=== PATIENT | female | born 1975 | race Caucasian/White ===

== ENCOUNTER 2020-10-18 15:11 | Outpatient (REF) | payer OTHER, SELFPAY ==
--- NOTE | ~2020-10-18 | MM_ITS ---
EXAMINATION: MM SCREENING DIGITAL BREAST TOMOSYNTHESIS, BILATERAL CLINICAL INFORMATION: Screening. Asymptomatic. History left ultrasound guided biopsy performed in [place] 12/02/2016 (benign fibroadenoma). No known family history breast cancer. The lifetime risk of breast cancer based on the Tyrer-Cuzick Model is 9%. COMPARISON: Mammography: 09/08/2018; outside ultrasound left breast and post biopsy left mammogram 12/02/2016 ([facility]; [place]). TECHNIQUE: Digital breast tomosynthesis is performed in both the craniocaudal and mediolateral oblique views along with computer-aided detection (CAD). Synthesized 2D images are generated from the tomosynthesis. FINDINGS: The breasts are heterogeneously dense, which may obscure small masses (ACR BI-RADS breast composition Category c). Breast tissue composition borders on extremely dense. Parenchymal pattern is similar to prior exam. There is no interval mass or architectural abnormality or abnormal calcifications. Biopsy clip marker again noted posterior 9:00 left breast. The axilla and skin contours are unremarkable. MM/MM tomosynthesis screening BI IMPRESSION: No mammographic evidence of malignancy. ASSESSMENT: BI-RADS 1: Negative RECOMMENDATION: Routine annual mammography screening. This patient's information was entered into a reminder system with a target due date for their next mammogram.
== END 2020-10-18 15:12 | disposition home or self-care (01) ==
LOC: HO.MAMMO 15:11
PROVIDERS: PCP Internal Medicine; Visit Provider Internal Medicine
DX: Z12.31 Encounter for screening mammogram for malignant neoplasm of breast (principal)
CPT/HCPCS: 77063; 77067

== ENCOUNTER 2020-11-08 10:07 | Outpatient (REF) | payer OTHER, SELFPAY ==
[2020-11-08 12:33] LABS: HCG Quantitative < 2 mIU/mL; TSH reflex Free T4 1.32 uIU/mL (0.32-4.0)
[2020-11-09 04:42] LABS: Follicle Stimulating Hormone 20.4 mIU/mL
[2020-11-09 08:45] LABS: BV Int Neg Control Negative (Negative); BV Int Pos Control Positive (Positive)
[2020-11-09 08:47] LABS: CT PCR NOT DETECTED (Not Detect.); NG PCR NOT DETECTED (Not Detect.)
== END 2020-11-08 10:08 | disposition home or self-care (01) ==
LOC: HO.LAB 10:07
PROVIDERS: PCP Internal Medicine; Visit Provider Obstetrics & Gynecology
DX: Z01.419 Encounter for gynecological examination (general) (routine) without abnormal findings (principal); Z11.3 Encounter for screening for infections with a predominantly sexual mode of transmission; N91.2 Amenorrhea, unspecified
CPT/HCPCS: 36415; 83001; 84146; 84443; 84702; 87480; 87491; 87510; 87591; 87660

== ENCOUNTER 2020-11-16 19:14 | Emergency (ER) | payer OTHER, SELFPAY ==
[2020-11-16 20:29] VITALS: BP 168/84; PULSE 98; RESP 16; TEMP 36.6; O2SAT 98; BMI 26.9
[2020-11-16 21:38] LABS: MANUAL DIFF FLAG NO
[2020-11-16 21:44] LABS: Basophils Percent Auto 0.4 % (0-2); Eosinophils Absolute Auto 0.1 X10*3/uL (0.0-0.4); Eosinophils Percent Auto 0.7 % (0-4); Hematocrit 40.5 % (37-47); Imm Gran Abs Auto 0.02 X10*3/uL (0.00-0.03); Imm Gran Pct Auto 0.3 % (0.0-0.4); Lymphocytes Absolute Auto 1.9 X10*3/uL (1.2-4.9); Lymphocytes Percent Auto 26.6 % (20-40); Mean Corpuscular HGB Conc 32.1 g/dl (31.0-35.0); Mean Corpuscular Hemoglobin 28.9 pg (27.0-33.0); Mean Platelet Volume 10.4 fL (9.4-12.3); Monocytes Absolute Auto 0.6 X10*3/uL (0.1-1.2); Monocytes Percent Auto 8.8 % (2-11); Neutrophils Absolute Auto 4.6 X10*3/uL (2.0-8.3); Neutrophils Percent Auto 63.2 % (45-73); Platelet Count 309 X10*3/uL (160-400); Red Cell Distribution Width 13.2 % (11.0-16.0); White Blood Count 7.2 X10*3/uL (4.8-10.8)
[2020-11-16 22:19] LABS: Anion Gap 12 (12-20); Blood Urea Nitrogen 8 mg/dL (9-16); Calcium 9.5 mg/dL (8.4-10.2); Carbon Dioxide 26 mmol/L (22-29); Chloride 106 mmol/L (96-108); Creatinine Clr Calc Pharmacy 94.9; Estimated Glomerular Filt Rate > 60; Glucose Random 96 mg/dL (60-115); Potassium 4.2 mmol/L (3.3-5.1); Sodium 140 mmol/L (135-145)
[2020-11-16 22:30] VITALS: BP 160/76; PULSE 50; RESP 16; O2SAT 100
--- NOTE | 2020-11-16 22:35 | PC.NURSE ---
PT UPRIGHT IN BED WATCHING TV, PT C/O L SIDED HEADACHE RADIATING FROM L POSTERIOR NECK SINCE THIS AM, ALSO CONCERNED FOR ELEVATED BP READINGS AT HOME. PT'S NEUROS GROSSLY INTACT, PT IN NAD, REPORTS HX OF MIGRAINES IN PAST. PT AWAITING PRIMARY PROVIDER AVERY.
--- NOTE | 2020-11-16 23:52 | ECG_ITS ---
Test Reason : HEADACHE Blood Pressure : / mmHG Vent. Rate : 057 BPM Atrial Rate : 057 BPM P-R Int : 156 ms QRS Dur : 084 ms QT Int : 422 ms P-R-T Axes : 018 003 050 degrees QTc Int : 410 ms Sinus bradycardia Otherwise normal ECG No previous ECGs available Referred By: Eliz García Electronically Signed By:Joni Calderon
[2020-11-17] VITALS: BP 151/82; PULSE 59; RESP 16; TEMP 36.7; O2SAT 98
[2020-11-17 00:30] LABS: Glucose Urine UA NEG (NEG); Leukocyte Esterase Urine NEG (NEG); Nitrite Urine NEG (NEG); Urine Blood NEG (NEG); Urine Ketones NEG (NEG); Urine Protein NEG (NEG-TRACE)
[2020-11-17 00:40] LABS: Appearance Urine CLEAR; Color Urine STRAW
--- NOTE | 2020-11-17 01:32 | ED.GENADULT ---
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 She states that she did take her meloxicam for her known ?muscle spasms? and denies any fever, chills, nausea, diaphoresis, speech or hearing changes with the headache. She says that she checked her blood pressure and noted that it was ?high?. In addition, patient has taken her blood pressure several other times and recorded it on a piece of paper which she shows to be in the 150s to 160s over 90s to 100. Otherwise she denies any chest pain, shortness of breath. Related Data Home Medications Medication Instructions Recorded Confirmed meloxicam 1 tab PO DAILY 10/30/20 10/30/20 meloxicam 1 tab PO DAILY PRN 10/30/20 10/30/20 Previous Rx's Medication Instructions Recorded ferrous sulfate [iron] 325 mg PO BID #60 tab 10/31/20 Allergies Allergy/AdvReac Type Severity Reaction Status Date / Time penicillin G Allergy Unknown Rash/itchin Verified 11/08/20 10:12 g Penicillins [PENICILLINS] Allergy Unknown RASH,ITCHY Verified 11/08/20 10:12 Review of Systems Review of Systems: Pertinent positives and negatives as stated in HPI 10 point review of systems is otherwise negative. PMFSH Past Medical History Source: nursing notes reviewed Medical History Fibromyalgia Surgical History H/O dilation and curettage H/O left breast biopsy Family History Family History Maternal Grandmother Tracheal cancer Mother Hypertension Father Hypertension Social History Social History Alcohol intake: never Advance Directives: No Advance Directives Information Provided: Yes Patient : No Physical Exam Vital Signs: Vital Signs: Last Vital Signs Temp 98.0 F 11/17/20 00:00 Pulse 59 11/17/20 00:00 Resp 16 11/17/20 00:00 BP 151/82 H 11/17/20 00:00 Pulse Ox 98 11/17/20 00:00 Body Mass Index 26.9 VITAL SIGNS: Reviewed. GENERAL: Well developed, well nourished, in no acute distress. HEAD: Normocephalic/atraumatic EYES: PERRLA, EOMI OROPHARYNX: no oral lesions noted, posterior pharynx clear NECK: Supple, no adenopathy LUNGS: Normal breath sounds. No adventitious sounds or accessory muscle use. SpO2<98> CARDIOVASCULAR: Regular rate and rhythm without noted murmurs ABDOMEN: Soft, non-tender, non-distended with bowel sounds. NEUROLOGIC: Alert and oriented x 4. Strength and sensation to light touch were grossly intact x 4, no pronator drift, no facial asymmetry, cranial nerves 2-12 are grossly intact Course Course Course Narrative: This is a 45-year-old female with history and clinical presentation consistent with tension-type headache and review of all investigations for blood pressure is negative for acute findings. All results were discussed with the patient at bedside she was counseled regarding combination of salt intake as well as medications such as meloxicam which can contribute to elevated blood pressures. Medical Decision Making Lab Data Result diagrams: 11/16/20 21:27 11/16/20 21:27 Labs: Lab Results 11/16/20 11/16/20 11/17/20 Range/Units 21:27 21:27 00:14 WBC 7.2 (4.8-10.8) X10*3/uL RBC 4.50 (4.20-5.50) X10*6/uL Hgb 13.0 (12.0-16.0) g/dl Hct 40.5 (37-47) % MCV 90.0 (80-98) fL MCH 28.9 (27.0-33.0) pg MCHC 32.1 (31.0-35.0) g/dl RDW 13.2 (11.0-16.0) % Plt Count 309 (160-400) X10*3/uL MPV 10.4 (9.4-12.3) fL Immature Gran % (Auto) 0.3 (0.0-0.4) % Neut % (Auto) 63.2 (45-73) % Lymph % (Auto) 26.6 (20-40) % [place] % (Auto) 8.8 (2-11) % Eos % (Auto) 0.7 (0-4) % Baso % (Auto) 0.4 (0-2) % Lymph # (Auto) 1.9 (1.2-4.9) X10*3/uL [place] # (Auto) 0.6 (0.1-1.2) X10*3/uL Eos # (Auto) 0.1 (0.0-0.4) X10*3/uL Baso # (Auto) 0.0 (0.0-0.2) X10*3/uL Abs Immat Gran (auto) 0.02 (0.00-0.03) X10*3/uL Absolute Neuts (auto) 4.6 (2.0-8.3) X10*3/uL Absolute Nucleated RBC 0.000 (0.0-0.012) X10*3/uL Nucleated RBC % (auto) 0.0 (0.0-0.2) /100WBC Sodium 140 (135-145) mmol/L Potassium 4.2 (3.3-5.1) mmol/L Chloride 106 (96-108) mmol/L Carbon Dioxide 26 (22-29) mmol/L Anion Gap 12 (12-20) BUN 8 L (9-16) mg/dL Creatinine 0.74 (0.5-1.4) mg/dL Estim Creat Clear Calc 94.9 Estimated GFR > 60 Random Glucose 96 (60-115) mg/dL Calcium 9.5 D (8.4-10.2) mg/dL Urine Color STRAW Urine Appearance CLEAR Urine pH 6.0 (5.0-8.0) Ur Specific [place] 1.010 (1.005-1.025) Urine Protein NEG (NEG-TRACE) MG/DL Urine Glucose (UA) NEG (NEG) MG/DL Urine Ketones NEG (NEG) MG/DL Urine Blood NEG (NEG) Urine Nitrite NEG (NEG) Ur Leukocyte Esterase NEG (NEG) ECG Data Attestation: I personally reviewed and interpreted this ECG as follows: Prior ECG tracings: not available for review Interpretation: Sinus bradycardia, HR -57, no evidence of acute ischemia, VT/QRS/QTC are within normal limits Discharge Plan Discharge Clinical Impression: Hypertension Patient Disposition: Home, Self-Care Instructions: Hypertension (ED), DASH Eating Plan (ED), Heart Healthy Diet (ED), Low-Sodium Diet (ED) Additional Instructions: 1. Miya un seguimiento con griggs proveedor de atenci?n primaria llamando al consultorio el lunes por la ma?patricia para programar julio juanita de reevaluaci?n. Regrese a la dany de emergencias por cualquier empeoramiento dereck de los s?ntomas. Prescriptions: No Action meloxicam 15 mg tablet 1 tab PO DAILY PRN (Reason: pain) RF: 0 meloxicam 7.5 mg tablet 1 tab PO DAILY RF: 0 ferrous sulfate [iron] 325 mg (65 mg iron) Tablet 325 mg PO BID Qty: 60 RF: 3 Referrals: Patricia Sidhu MD [Primary Care Provider] - 2 days ( please re-evaluate patient for mild evidence of hypertension, lab work is negative) Print Language: Tuvaluan
== END 2020-11-17 02:06 | disposition home or self-care (01) ==
PROVIDERS: Emergency Provider Student in an Organized Health Care Education/Training Program; PCP Internal Medicine
DX: I10 Essential (primary) hypertension (principal); R51.9 Headache, unspecified
CPT/HCPCS: 36415; 80048; 81003; 85025; 93005; 99283; 99284

== ENCOUNTER 2020-11-20 14:21 | Outpatient (REF) | payer OTHER, SELFPAY ==
--- NOTE | ~2020-11-20 | US_ITS ---
EXAMINATION: PELVIC ULTRASOUND CLINICAL INFORMATION: Amenorrhea COMPARISON: Previous exam most recent September 2018 TECHNIQUE: Transabdominal and transvaginal pelvic ultrasound was performed. Transvaginal exam was performed for better visualization of the uterus and ovaries. FINDINGS: The uterus is anteverted and measures 11 x 4.4 x 6 cm in dimension. There are 3 uterine lesions suggestive of fibroids measuring 2.3 x 2.3 x 2.2 cm in the left body of the uterus, 7 x 6 x 7 mm in the posterior upper body of the uterus near the endometrium and 9 mm in the anterior upper body of the uterus near the endometrium. The endometrium is normal appearing. Endometrial thickness measures 0.4 cm. The ovaries are normal-appearing. The right ovary measures 2.9 x 1.8 x 2 cm. The left ovary measures 2.4 x 1.6 x 1.5 cm. There is no fluid in the pelvis. There are prominent right adnexal vessels questionable for pelvic congestion. US/US pelvic and transvaginal IMPRESSION: Small uterine fibroids. Prominent vessels in the right adnexa questionable for pelvic congestion.
== END 2020-11-20 14:22 | disposition home or self-care (01) ==
LOC: HO.US 14:21
PROVIDERS: Visit Provider Obstetrics & Gynecology
DX: R10.9 Unspecified abdominal pain (principal); N91.2 Amenorrhea, unspecified; D50.9 Iron deficiency anemia, unspecified; Z80.0 Family history of malignant neoplasm of digestive organs
CPT/HCPCS: 76830; 76856

== ENCOUNTER → 2020-12-04 10:55 | Outpatient (BNVA) | payer OTHER, SELFPAY | PROVIDERS: Visit Provider Obstetrics & Gynecology ==

== ENCOUNTER 2020-12-20 07:18 | Day surgery (SDC) | payer OTHER, SELFPAY ==
[2020-12-13 10:09] VITALS: BMI 26.9
--- NOTE | 2020-12-19 09:25 | HO.ANESPROP2 ---
Documented by User: Naa Nancy 12/19/20 09:28 HPI - Anesthesia Eval Consult details Narrative: 45yo F for Upper Endoscopy and Colonoscopy Started on HCTZ by PCP 12/18/20 [facility] Active Problems Active Problems: All Active Problems (Updated 12/18/20 @ 16:01 by Lucas Acosta PA-C) LUQ abdominal pain (Acute) Iron deficiency anemia (Chronic) Family history of colon cancer (Acute) HTN (hypertension) (Acute) Abdominal pain (Acute) Past Medical History Medical History Abdominal pain Fibromyalgia HTN (hypertension) Hx of migraine headaches Iron deficiency anemia Family History Family History Maternal Grandmother Tracheal cancer Mother Hypertension Father Hypertension Colon cancer Surgical History Surgical History H/O dilation and curettage H/O left breast biopsy Social History Social History Household Members: Spouse and Children Household Members Other:: 2 kids Housing: House Alcohol intake: never Patient Tobacco Use Status: Never used Tobacco e-Cigarette/Vaping Use: Never Used Second Hand Smoke Exposure: No Use of substances other than those prescribed or required for medical reasons: No Have you been hit, kicked, punched, or otherwise hurt by someone within the past year? 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 Rate : 057 BPM Atrial Rate : 057 BPM P-R Int : 156 ms QRS Dur : 084 ms QT Int : 422 ms P-R-T Axes : 018 003 050 degrees QTc Int : 410 ms Sinus bradycardia Otherwise normal ECG No previous ECGs available Assessment and Plan Assessment Anesthesia Assessment: Chart Reviewed Documented by User: Eliz Shabazz 12/20/20 08:31 PMFSH Past Medical History Medical History Abdominal pain Fibromyalgia HTN (hypertension) Hx of migraine headaches Iron deficiency anemia Family History Family History Maternal Grandmother Tracheal cancer Mother Hypertension Father Hypertension Colon cancer Surgical History Surgical History H/O dilation and curettage H/O left breast biopsy Social History Social History Household Members: Spouse and Children Household Members Other:: 2 kids Housing: House Alcohol intake: never Patient Tobacco Use Status: Never used Tobacco e-Cigarette/Vaping Use: Never Used Second Hand Smoke Exposure: No Use of substances other than those prescribed or required for medical reasons: No Have you been hit, kicked, punched, or otherwise hurt by someone within the past year? 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 Allergies Allergy/AdvReac Type Severity Reaction Status Date / Time Penicillins [PENICILLINS] Allergy Intermediate RASH,ITCHY Verified 12/18/20 15:41 Exam Airway Mallampati Class: II TM Dist: >3cm Neck ROM: Full Loose/Missing/Broken Teeth: No Heart: RRR Lungs: CTA Assessment and Plan Assessment Anesthesia Assessment: Anesthesia Plan Discussed and Chart Reviewed Final Anesthetic Review NPO: Yes ASA Class: II Final Preanesthetic Review: Meds/Allgs Chart Reviewed, Consent Obtained/Reviewed and Anes Risks/Benef Reviewed Patient Risk: Low Procedure Risk: Intermediate Anesthetic Plan Anesthetic Plan: MAC: Disposition: Standard PACU
--- NOTE | 2020-12-20 07:22 | MHC.SHP ---
Pre-Procedural Eval Section A Date of Service: 12/20/20 Section B Chief Complaint: Anemia Relevant Family History (Specify if Yes): No Relevant Social History: None Present Medications: see Short Stay Collaborative assessment Medical History: Significant History (Abdominal pain Fibromyalgia HTN (hypertension) Hx of migraine headaches Iron deficiency anemia) History of Previous Operations: Relevant previous surgery/procedure and date(s) (H/O dilation and curettage H/O left breast biopsy) Allergies: Allergies Allergy/AdvReac Type Severity Reaction Status Date / Time Penicillins [PENICILLINS] Allergy Intermediate RASH,ITCHY Verified 12/18/20 15:41 Review of Systems Sugical H&P ROS: Negative: Constitution, Cardiovascular, Respiratory, Neurological, Psychiatric, Hem-Onc, Allergic/Immunologic, Gastrointestinal, Genitourinary, Musculoskeletal, Integumentary, Endocrine and Eyes/Ears/Nose/Throat Exam Surgical H&P Exam: Normal: HEENT, Normal: Heart, Normal: Lungs, Normal: Extremities, Normal: Abdomen, Normal: Skin and Normal: Neurological Plan Diagnosis/Plan: Unchanged I have reviewed the history and physical and performed a pertinent physical examination on my patient. No changes have occurred unless specified.
[2020-12-20 07:43] LABS: UPreg QC Valid YES; Urine Pregnancy NEGATIVE (NEGATIVE)
[2020-12-20 07:45] VITALS: BP 146/88; PULSE 78; RESP 18; TEMP 36.3; O2SAT 100
[2020-12-20] MEDS: Lactated Ringers 1,000 ML 100 ML IVCONT (08:10)
--- NOTE | 2020-12-20 08:50 | P.OP_ITS ---
Operative Note Operative Note Date of Service: 12/20/20 Narrative: Operative Information Procedure Description: EGD, Colonoscopy FLEXIBLE TRANSORAL UPPER GASTROINTESTINAL ENDOSCOPY AND COLONOSCOPY PROCEDURE NOTE UPPER ENDOSCOPY Consent: Indications for the procedure and potential complications of bleeding, perforation, reaction to medications and missed diagnosis were discussed with the patient and informed consent was obtained. Instrument: Olympus GIF H 190 J mid size upper endoscope Monitoring: Vital signs and clinical assessment, continuous EKG monitoring, Pulse oximetry, Carbon Dioxide monitoring and blood pressure monitoring were done throughout the procedure. Procedure: The patient was placed in the left lateral decubitis position and pre-procedure medications were administered and a bite block was placed. The endoscope was inserted into the mouth and advanced under direct vision to the third part of duodenum. A careful inspection was made as the upper endoscope was withdrawn including a retroflexed examination of the proximal stomach; Findings and interventions are described below. Findings: Larynx:normal Esophagus: GE junction at 38 cm, diaphragm hiatus at 38 cm, mild esophagitis noted, bx from GEJ and random esophagus taken in separate jars Stomach: Normal mucosa. Biopsies were obtained. Grade 2 flap valve on retroflexed examination of the cardia. Few fundic gland polyps noted an d biopsy taken. Seemed to be reduced gastric peristalsis. Duodenum: Normal bulb and descending duodenum, bx taken Intervention: Biopsies as noted above COLONOSCOPY Instrument: Olympus variable stiffness pediatric scope 190L Colonoscopy Monitoring: Vital signs and clinical assessment, continuous EKG monitoring, Pulse oximetry, Carbon Dioxide monitoring and blood pressure monitoring were done throughout the procedure. Colon withdrawal time was 9 minutes. Procedure: The patient was placed in the left lateral decubitis position and pre-procedure medications were administered. After a digital rectal examination of the ano-rectum, the video colonoscope was inserted into the rectum and advanced through the colon to the cecum/TI. The colonoscope was slowly withdrawn in a retrograde panoramic fashion and the colon mucosa was carefully examined including a retroflexed view of the rectum. Findings and interventions are described below. Procedure Difficulty: easy Findings: Terminal Ileum-normal, bx taken random colon bx taken Cecum:normal Ascending Colon: few diverticula seen Transverse Colon - 4-5 mm sessile polyp removed with forceps Descending Colon: diverticula noted Sigmoid Colon: moderate severe diverticulosis noted Rectum: Retroflexion with small internal hemorrhoids, grade I Anorectum - normal there appeared to be minimal colonic peristalsis Colon preparation: [place] Bowel Preparation Scale Right colon; 3 Transverse colon: 3 Left colon; 3 (0 = Unprepared colon segment with mucosa not seen due to solid stool that cannot be cleared. 1 = Portion of mucosa of the colon segment seen, but other areas of the colon segment not well seen due to staining, residual stool and/or opaque liquid. 2 = Minor amount of residual staining, small fragments of stool and/or opaque liquid, but mucosa of colon segment seen well. 3 = Entire mucosa of colon segment seen well with no residual staining, small fragments of stool or opaque liquid) Impression and Post Procedure Diagnosis: Endoscopy Findings: fundic gland polyps esophagitis, Colonoscopy Findings: polyp internal hemorrhoids diverticular disease Plan: Await Pathology results Repeat Colonoscopy in 5 years or earlier if clinically indicated High fiber diet leaflet avoid straining at stool, epsom salts and sitz bath, anusol supps or cream as needed may have gastroparesis and GI dysmotility, will r/v in office with her, may consider GES and sitz marker tests based on clinical symptomology Above findings were reviewed with the patient and relevant handouts were provided if indicated.
--- NOTE | 2020-12-20 08:50 | PM.OP ---
Brief Operative Note Date of Service: 12/20/20 Pre-op diagnosis: anemia Post-op diagnosis: same Procedure: see op note Surgeon: Katerin Herrera MD Anesthesia: MAC Was an Vulnerability Researcher used for this Procedure?: No Estimated blood loss (mL): 0 Condition: stable Disposition: PACU
[2020-12-20 09:10] VITALS: BP 123/65; PULSE 83; RESP 14; TEMP 36.3; O2SAT 100
[2020-12-20 09:25] VITALS: BP 124/83; PULSE 67; RESP 16; TEMP 36.3; O2SAT 99
== END 2020-12-20 10:22 | disposition home or self-care (01) ==
PROVIDERS: Nurse Practitioner; PCP Internal Medicine; Visit Provider Internal Medicine Gastroenterology
PROC: (CPT 45380; principal; 2020-12-20 08:20)
DX: D50.9 Iron deficiency anemia, unspecified (principal); Z80.0 Family history of malignant neoplasm of digestive organs; D12.3 Benign neoplasm of transverse colon; K57.30 Diverticulosis of large intestine without perforation or abscess without bleeding; K64.0 First degree hemorrhoids; R10.31 Right lower quadrant pain; G89.29 Other chronic pain; K31.7 Polyp of stomach and duodenum; K20.80 Other esophagitis without bleeding; K44.9 Diaphragmatic hernia without obstruction or gangrene; I10 Essential (primary) hypertension; M79.7 Fibromyalgia; Z79.899 Other long term (current) drug therapy; Z88.0 Allergy status to penicillin
CPT/HCPCS: 45380; 43239; 81025; 88305; 88342; J3010

== ENCOUNTER → 2021-01-01 08:19 | Outpatient (BNVA) | payer OTHER, SELFPAY | PROVIDERS: PCP Internal Medicine; Referring Provider Internal Medicine; Visit Provider Physician Assistant ==

== ENCOUNTER 2021-01-15 13:37 | Outpatient (REF) | payer OTHER, SELFPAY ==
--- NOTE | ~2021-01-15 | CT_ITS ---
EXAMINATION: CT ABDOMEN AND PELVIS WITH CONTRAST CLINICAL INFORMATION: Abdominal pain COMPARISON: Previous abdominal ultrasound February 2019 and pelvic ultrasound November 2020 TECHNIQUE: Multidetector volumetric images were obtained from the superior aspect of the liver through the pubic symphysis following administration 85 mL of Omnipaque 350 intravenous contrast. Sagittal and coronal reformatted images were obtained on the technologist's workstation. Oral contrast: Yes This CT examination was performed using dose optimization techniques as appropriate, variously including the following: *Automated exposure control *Adjustment of mA and/or kV according to patient size (this includes techniques or standardized protocols for targeted exams where dose is matched to indication/reason for exam; i.e. extremities or head) *Use of iterative reconstruction technique DLP: 599 mGy-cm FINDINGS: LUNG BASES: The visualized lung bases are unremarkable. LIVER, GALLBLADDER, AND BILIARY TREE: There are small low-attenuation liver lesions probably representing cysts. Largest measures 5 mm in the dome of the liver. The liver is otherwise unremarkable. The gallbladder is unremarkable. There is no biliary duct dilatation. PANCREAS: Unremarkable. SPLEEN: Unremarkable. ADRENAL GLANDS: Unremarkable. KIDNEYS AND URETERS: There were small bilateral renal cysts, largest measuring 1 cm cyst in the upper pole of the left kidney. The kidneys are otherwise unremarkable. BLADDER: Unremarkable. GASTROINTESTINAL TRACT: There is mild diverticulosis of the colon. There is no evidence of diverticulitis. There is stool throughout the colon suggestive of constipation. The small and large bowel are otherwise unremarkable. The appendix is unremarkable. The stomach is filled with food. ABDOMINAL WALL: There is a small umbilical hernia containing fat. LYMPH NODES: Normal. VASCULAR: Unremarkable. PELVIC VISCERA: Unremarkable. OSSEOUS STRUCTURES: Unremarkable. CT/CT abdomen pelvis w con IMPRESSION: Small liver and bilateral renal cysts. Diverticulosis of the colon. No evidence of diverticulitis. Stool throughout the colon suggestive of constipation.
[2021-01-15] MEDS: Barium Sulfate Oral (Berry) 450 ML ORAL.SUSP 900 ML PO (14:56)
[2021-01-15] MEDS: iohexoL 350 MG/ML 100 ML INFUS..BTL IV (16:23)
== END 2021-01-15 13:38 | disposition home or self-care (01) ==
LOC: HO.CT 13:37
PROVIDERS: PCP Internal Medicine; Visit Provider Physician Assistant
DX: R10.9 Unspecified abdominal pain (principal)
CPT/HCPCS: 74177; Q9967

== ENCOUNTER 2021-01-22 15:49 | Outpatient (REF) | payer OTHER, SELFPAY ==
--- NOTE | ~2021-01-22 | MR_ITS ---
MR BRAIN WITHOUT AND WITH CONTRAST CLINICAL INFORMATION: Benign neoplasm of the pituitary gland. COMPARISON: Brain MRI 09/03/2018. TECHNIQUE: Multiplanar, multisequence MRI of the brain was obtained before and after the intravenous administration of 3.5 mL Gadavist. FINDINGS: There is a stable-appearing 2 mm focus of hypoenhancement within the upper right paramedian aspect of the anterior pituitary lobe, most likely a pituitary microadenoma that is unchanged. Infundibulum is midline. No mass effect on the optic nerve apparatus. The cavernous sinuses are symmetric and normal. There is no hydrocephalus, extra-axial surface collection, or herniation. The major flow voids at the skull base are preserved. There is no acute infarct on diffusion-weighted imaging. There is no intracranial hemorrhage on the gradient recalled echo acquisition. The cerebellar tonsils are normally positioned. The cerebellum and brainstem are normal. The craniocervical junction is normal. Osseous marrow signal intensity is homogenous. The visualized soft tissues are unremarkable. MR/MR head/brain wo/w con IMPRESSION: Stable-appearing 2 mm focus of hypoenhancement within the upper right paramedian aspect of the anterior pituitary lobe, most likely a pituitary microadenoma. There is no sellar/suprasellar mass effect.
[2021-01-22 16:25] LABS: Alanine Aminotransferase 16 U/L (0-31); Albumin Level 4.1 g/dL (3.5-5.0); Alkaline Phosphatase 73 U/L (39-117); Anion Gap 11 (12-20); Aspartate Amino Transferase 17 U/L (5-31); Bilirubin Total 0.3 mg/dL (0.0-1.0); Blood Urea Nitrogen 12 mg/dL (9-16); Calcium 9.3 mg/dL (8.4-10.2); Carbon Dioxide 29 mmol/L (22-29); Chloride 104 mmol/L (96-108); Estimated Glomerular Filt Rate > 60; Glucose Random 87 mg/dL (60-115); Potassium 3.8 mmol/L (3.3-5.1); Sodium 140 mmol/L (135-145); Total Protein 7.2 g/dL (6.5-8.0)
== END 2021-01-22 15:50 | disposition home or self-care (01) ==
LOC: HO.MRI 15:49
PROVIDERS: PCP Internal Medicine; Visit Provider Internal Medicine
DX: D35.2 Benign neoplasm of pituitary gland (principal); H53.8 Other visual disturbances
CPT/HCPCS: 36415; 70553; 80053; A9585

== ENCOUNTER → 2021-02-05 10:11 | Outpatient (BNVA) | payer OTHER, SELFPAY | PROVIDERS: PCP Internal Medicine; Visit Provider Physician Assistant ==

== ENCOUNTER 2021-03-06 08:05 | Outpatient (REF) | payer OTHER, SELFPAY ==
--- NOTE | ~2021-03-06 | US_ITS ---
EXAMINATION: US ABDOMEN COMPLETE CLINICAL INFORMATION: Left upper quadrant pain. COMPARISON: CT abdomen and pelvis 01/15/2021. Ultrasound abdomen complete 02/24/2019. TECHNIQUE: Real-time imaging of the abdominal viscera. FINDINGS: PANCREAS: Normal. ABDOMINAL AORTA: The proximal, mid, and distal segments are normal in caliber. INFERIOR VENA CAVA: Visualized portions are normal. LIVER: The liver is normal in size. The liver contour is normal. Parenchymal echogenicity is normal. There is a 8 x 4 x 6 mm bilobed cyst in the right lobe of the liver. Other small cysts seen by CT are not appreciated. There is no intrahepatic biliary duct dilatation seen. GALLBLADDER: Normal. The gallbladder is physiologically distended without evidence of stones, sludge, polyps, wall thickening or pericholecystic fluid. COMMON BILE DUCT: Normal in caliber measuring 0.6 cm in diameter. RIGHT KIDNEY: There is a 9 x 6 x 8 mm cyst in the lower pole. No hydronephrosis or renal calculi. The kidney measures 10.7 cm in maximum dimension. LEFT KIDNEY: There is an 8 x 6 x 7 mm cyst in the upper pole. No hydronephrosis or renal calculi. The kidney measures 10.3 cm in maximum dimension. SPLEEN: Normal. The spleen measures 9.9 cm in maximum dimension. FREE FLUID: None. US/US abdomen complete IMPRESSION: Small liver and bilateral renal cysts.
== END 2021-03-06 08:06 | disposition home or self-care (01) ==
LOC: HO.US 08:05
PROVIDERS: Visit Provider Physician Assistant
DX: R10.12 Left upper quadrant pain (principal)
CPT/HCPCS: 76700

== ENCOUNTER 2021-06-12 08:18 | Outpatient (REF) | payer OTHER, SELFPAY ==
--- NOTE | 2021-06-12 08:31 | ECG_ITS ---
Test Reason : chest pain Blood Pressure : / mmHG Vent. Rate : 058 BPM Atrial Rate : 058 BPM P-R Int : 162 ms QRS Dur : 088 ms QT Int : 414 ms P-R-T Axes : 063 009 054 degrees QTc Int : 406 ms Sinus bradycardia Otherwise normal ECG When compared with ECG of 17-NOV-2020 00:08, No significant change was found Referred By: Patricia Santos Electronically Signed By:Joni Calderon
[2021-06-12 09:22] LABS: Alanine Aminotransferase 24 U/L (0-31); Albumin Level 4.2 g/dL (3.5-5.0); Alkaline Phosphatase 80 U/L (39-117); Anion Gap 7 (12-20); Aspartate Amino Transferase 19 U/L (5-31); Bilirubin Total 0.5 mg/dL (0.0-1.0); Blood Urea Nitrogen 14 mg/dL (9-16); Calcium 9.8 mg/dL (8.4-10.2); Carbon Dioxide 33 mmol/L (22-29); Chloride 104 mmol/L (96-108); Cholesterol 220 mg/dL; Estimated Glomerular Filt Rate > 60; Glucose Fasting 102 mg/dL (60-99); HDL Cholesterol 50 mg/dL; LDL Cholesterol Calculated 139 mg/dl; Potassium 3.9 mmol/L (3.3-5.1); Sodium 140 mmol/L (135-145); Total Protein 7.8 g/dL (6.5-8.0); Triglycerides 156 mg/dL
== END 2021-06-12 08:19 | disposition home or self-care (01) ==
LOC: HO.LAB 08:18
PROVIDERS: PCP Internal Medicine; Visit Provider Internal Medicine
DX: R07.9 Chest pain, unspecified (principal); E78.5 Hyperlipidemia, unspecified
CPT/HCPCS: 36415; 80053; 80061; 93005

== ENCOUNTER 2022-01-02 10:23 | Outpatient (REF) | payer OTHER, SELFPAY ==
--- NOTE | ~2022-01-02 | MM_ITS ---
EXAMINATION: MM SCREENING DIGITAL BREAST TOMOSYNTHESIS, BILATERAL CLINICAL INFORMATION: Screening. Asymptomatic. The lifetime risk of breast cancer based on the Tyrer-Cuzick Model is 9.0%. COMPARISON: Mammography: October 18, 2020 and studies dating back to November 10, 2016 TECHNIQUE: Digital breast tomosynthesis is performed in both the craniocaudal and mediolateral oblique views along with computer-aided detection (CAD). Synthesized 2D images are generated from the tomosynthesis. FINDINGS: The breasts are extremely dense, which lowers the sensitivity of mammography (ACR BI-RADS breast composition Category d). There are no significant masses, abnormal calcifications, or other abnormalities. MM/MM tomosynthesis screening BI IMPRESSION: There are no significant changes from prior study. ASSESSMENT: BI-RADS 1: Negative RECOMMENDATION: Routine annual mammography screening. This patient's information was entered into a reminder system with a target due date for their next mammogram.
== END 2022-01-02 10:24 | disposition home or self-care (01) ==
LOC: HO.MAMMO 10:23
PROVIDERS: Visit Provider Internal Medicine
DX: Z12.31 Encounter for screening mammogram for malignant neoplasm of breast (principal)
CPT/HCPCS: 77063; 77067

== ENCOUNTER 2022-01-04 08:50 | Outpatient (REF) | payer BC, OTHER, SELFPAY ==
[2022-01-04 09:33] LABS: MANUAL DIFF FLAG NO
[2022-01-04 10:18] LABS: Basophils Percent Auto 0.6 % (0-2); Eosinophils Absolute Auto 0.1 X10*3/uL (0.0-0.4); Eosinophils Percent Auto 1.4 % (0-4); Hematocrit 40.9 % (37.0-47.0); Hemoglobin 13.1 g/dl (12.0-16.0); Imm Gran Abs Auto 0.01 X10*3/uL (0.00-0.03); Imm Gran Pct Auto 0.2 % (0.0-0.4); Lymphocytes Absolute Auto 1.7 X10*3/uL (1.2-4.9); Lymphocytes Percent Auto 32.7 % (20-40); Mean Corpuscular Hemoglobin 28.5 pg (27.0-33.0); Mean Corpuscular Volume 88.9 fL (80.0-98.0); Monocytes Absolute Auto 0.4 X10*3/uL (0.1-1.2); Monocytes Percent Auto 8.6 % (2-11); Neutrophils Absolute Auto 2.9 x10*3/uL (2.0-8.3); Neutrophils Percent Auto 56.5 % (45-73); Platelet Count 269 X10*3/uL (160-400); Red Cell Distribution Width 12.5 % (11.0-16.0); White Blood Count 5.1 X10*3/uL (4.8-10.8)
[2022-01-04 10:49] LABS: Alanine Aminotransferase 16 U/L (0-31); Albumin Level 4.4 g/dL (3.5-5.0); Alkaline Phosphatase 76 U/L (39-117); Anion Gap 10 (12-20); Aspartate Amino Transferase 16 U/L (5-31); Bilirubin Total 0.7 mg/dL (0.0-1.0); Blood Urea Nitrogen 13 mg/dL (9-16); Calcium 9.4 mg/dL (8.4-10.2); Carbon Dioxide 28 mmol/L (22-29); Chloride 105 mmol/L (96-108); Cholesterol 248 mg/dL; Estimated Glomerular Filt Rate > 60; Glucose Fasting 93 mg/dL (60-99); HDL Cholesterol 63 mg/dL; Iron 99 mcg/dL (30-160); LDL Cholesterol Calculated 170 mg/dl; Percent Iron Saturation 34 % (15-50); Sodium 139 mmol/L (135-145); Total Iron Binding Capacity 295 mcg/dL (228-428); Total Protein 7.6 g/dL (6.5-8.0); Triglycerides 78 mg/dL; Unsaturated Iron Binding 196 ug/dL
== END 2022-01-04 08:51 | disposition home or self-care (01) ==
LOC: HO.LAB 08:50
PROVIDERS: PCP Internal Medicine; Visit Provider Internal Medicine
DX: E78.5 Hyperlipidemia, unspecified (principal); D64.9 Anemia, unspecified
CPT/HCPCS: 36415; 80053; 80061; 83540; 85025

== ENCOUNTER 2022-02-10 15:50 | Outpatient (REF) | payer BC, SELFPAY ==
[2022-02-11 06:50] LABS: CT PCR NOT DETECTED (Not Detect.); NG PCR NOT DETECTED (Not Detect.)
[2022-02-11 12:55] LABS: BV Int Neg Control Negative (Negative); BV Int Pos Control Positive (Positive)
[2022-02-15 07:21] LABS: HPV 16 RNA NOT DETECTED (NOT DETECTED); HPV mRNA E6/E7 rflx Detected (Not Detected)
== END 2022-02-10 15:51 | disposition home or self-care (01) ==
LOC: HO.LAB 15:50
PROVIDERS: Visit Provider Advanced Practice Midwife
DX: Z01.419 Encounter for gynecological examination (general) (routine) without abnormal findings (principal); Z11.51 Encounter for screening for human papillomavirus (HPV); R10.2 Pelvic and perineal pain; R30.0 Dysuria; R39.89 Other symptoms and signs involving the genitourinary system; Z20.2 Contact with and (suspected) exposure to infections with a predominantly sexual mode of transmission
CPT/HCPCS: 87086; 87088; 87186; 87480; 87491; 87510; 87591; 87624; 87625; 87660; 88142

== ENCOUNTER 2022-03-31 14:54 | Outpatient (REF) | payer BC, SELFPAY ==
--- NOTE | ~2022-03-31 | US_ITS ---
EXAMINATION: US PELVIS CLINICAL INFORMATION: Pelvic and perineal pain COMPARISON: None TECHNIQUE: Ultrasound of the pelvis is performed using both transabdominal and transvaginal transducers along with Doppler. Transvaginal imaging is performed due to inadequate visualization transabdominally. FINDINGS: Uterus: The uterus is anteverted, anteflexed and measures 9.4 cm in length, 4.8 cm and AP and 5.8 cm in transverse dimension. The double wall endometrial thickness is 1.3 cm. There is a hypoechoic lesion in the endometrium measuring 2.23 x 2.01 x 2.07 cm suggestive of small polyp. The uterus is smooth in contour and has normal myometrial echogenicity. There are hypoechoic fibroids. 1. Lesion in the left upper body of uterus measures 2.6 x 2.1 x 2.2 cm. Previously it measured 2.3 x 2.3 x 2.2 cm. 2. Lesion in the posterior upper body of uterus measures 0.7 x 0.5 x 0.6 cm. Previously it measured 0.7 x 0.6 x 0.7 seen. There are small nabothian cysts. Adnexa: Both ovaries are visualized. There is normal color flow to the adnexa. There is no ovarian torsion. There is no pelvic ascites or fluid collection. Right ovary measures 2.1 x 1.3 x 0.9 cm and volume 1.2 mL. There is anechoic cyst in this ovary measuring 1.4 x 0.7 x 0.7 cm Left ovary measures 3.1 x 2.2 x 2.3 cm and volume 8.2 mL. There is anechoic cyst measuring 2.4 x 1.8 x 1.5 cm. Previously it measured 2.4 x 1.6 x 1.5 cm. There is no free fluid in the cul-de-sac. US/US pelvic and transvaginal IMPRESSION: 1. Small endometrial polyp measuring 2.23 x 2.01 x 2.07 cm. 2. 2 uterine fibroids as described above. 3. Bilateral ovarian cysts. 4. Small nabothian cysts in the cervix.
== END 2022-03-31 14:55 | disposition home or self-care (01) ==
LOC: HO.US 14:54
PROVIDERS: Visit Provider Advanced Practice Midwife
DX: R10.2 Pelvic and perineal pain (principal)
CPT/HCPCS: 76830; 76856

== ENCOUNTER → 2022-04-11 14:06 | Outpatient (REF) | payer BC, OTHER, SELFPAY ==
--- NOTE | 2022-04-11 14:09 | HM_ITS ---
Conclusion: 1. Patient was monitored for total period of 2 days 2. Baseline was normal sinus rhythm with average heart rate of 71 beats per minute 3. Frequent sinus bradycardia noted with 36% of time heart rate below 60 beats per minute with lowest heart rate of 48 beats per minute 4. No significant pauses noted 5. Total of 8460 PACs accounting for 4.15% of total beats account for frequent PACs 6. Patient reported to events of racing heart which correlated with sinus rhythm MTDD
== END ==
LOC: HO.CARD 14:06
PROVIDERS: PCP Internal Medicine; Visit Provider Internal Medicine
DX: R00.2 Palpitations (principal)
CPT/HCPCS: 93226; 93242

== ENCOUNTER 2022-05-28 14:36 | Outpatient (REF) | payer BC, OTHER, SELFPAY ==
[2022-05-28 17:26] LABS: HCG Quantitative < 2 mIU/mL; TSH reflex Free T4 1.35 uIU/mL (0.32-4.0)
== END 2022-05-28 14:37 | disposition home or self-care (01) ==
LOC: HO.LAB 14:36
PROVIDERS: PCP Internal Medicine; Visit Provider Obstetrics & Gynecology
DX: Z32.02 Encounter for pregnancy test, result negative (principal); N93.9 Abnormal uterine and vaginal bleeding, unspecified
CPT/HCPCS: 36415; 57454; 81025; 84443; 84702

== ENCOUNTER 2022-05-28 15:31 | Outpatient (REF) | payer BC, OTHER, SELFPAY | END 2022-05-28 15:32 | disposition home or self-care (01) | LOC: HO.LNP 15:31 | PROVIDERS: Visit Provider Obstetrics & Gynecology | DX: R87.810 Cervical high risk human papillomavirus (HPV) DNA test positive (principal) | CPT/HCPCS: 85027; 88305; 88342; 88360 ==

== ENCOUNTER → 2022-06-18 15:14 | Outpatient (BNVA) | payer OTHER, SELFPAY | PROVIDERS: Visit Provider Obstetrics & Gynecology | DX: Z13.89 Encounter for screening for other disorder (principal) ==

== ENCOUNTER → 2022-06-26 14:44 | Outpatient (BNVA) | payer OTHER, SELFPAY | PROVIDERS: PCP Internal Medicine; Referring Provider Internal Medicine; Visit Provider Internal Medicine Cardiovascular Disease | DX: R07.9 Chest pain, unspecified (principal); I49.1 Atrial premature depolarization | CPT/HCPCS: 93005 ==

== ENCOUNTER → 2022-07-11 07:38 | Outpatient (REF) | payer OTHER, SELFPAY ==
--- NOTE | 2022-07-11 07:43 | CA_ITS ---
Transthoracic Echocardiogram Patient (Last, First, Middle): Gwen Pabon, Gender: Female Date of : 1975 Age: 46 Procedure Date: 07/11/2022 Procedure Type: Transthoracic Echocardiogram Location: OP Height: 162.56 cm Weight: 73.48 kg BSA: 1.79 m2 Heart Rate: 60 bpm BP: 130 / 86 mmHg Cable Cutter And Swager: SB Referring MD: Darin Byrd MD Symptoms: R07.9 - Chest pain, unspecified Study Quality: Adequate ECG Rhythm: Sinus with PACs Conclusions: - The left ventricular systolic function is normal. The visually estimated ejection fraction is between 55-60%. - There is mild mitral valve regurgitation. - There is mild tricuspid valve regurgitation. - The inferior vena cava is dilated and collapses less than 50% with inspiration. Findings Left Ventricle Normal left ventricular cavity size. There is normal left ventricular wall thickness. The left ventricular systolic function is normal. The visually estimated ejection fraction is between 55-60%. There is no evidence of regional wall motion abnormalities. Diastolic function is normal for age. LV peak GLS -20.1%. Right Ventricle Normal right ventricular cavity size and systolic function. Atria Both atria are normal in size. Aortic Valve There is a normal trileaflet aortic valve. There is no aortic valve stenosis. There is no aortic valve regurgitation. Mitral Valve The mitral valve appears normal. There is mild mitral valve regurgitation. There is no mitral valve stenosis. Pulmonic Valve There is trace to mild pulmonic valve regurgitation. Tricuspid Valve Normal tricuspid valve structure. There is mild tricuspid valve regurgitation. There is no evidence of pulmonary hypertension. Great Vessels The asc aorta is normal in size. Venous The inferior vena cava is dilated and collapses less than 50% with inspiration. Pericardium/Pleural There is no evidence of pericardial effusion. Prior Study Comparison No prior study available for comparison. Measurements 2D Linear Measurements IVSd: 0.77 0.6-0.9/0.6-1.0 cm LVIDd: 4.69 3.9-5.3/4.2-5.9 cm LVIDd Index: 2.62 2.4-3.2/2.2-3.1 cm/m2 LVIDs: 3.13 2.0-3.6 cm LVPWd: 0.92 0.7-1.1 cm LA Diam: 3.50 2.7-3.8/3.0-4.0 cm LAIDs Index: 1.96 1.5-2.3 cm/m2 LV Mass: 162.41 67-162/88-224 g LV Mass Index: 90.73 43-95/49-115 g/m2 LVOT Diam: 2.00 3.0+(-)1.3 cm 2D Systolic Function EF 4C: 46.30 >55% EF 2C: 66.40 >55% EF BiP: 57.20 >55% Mitral Valve MV Pk E: 0.60 MV PK A: 0.37 MV Decel Time: 264.00 E/A: 1.60 E'Lateral: 11.40 E'Medial: 10.80 E/E' Med: 5.50 E/E' Lat: 5.20 PHT: 77.00 MVA PHT: 2.86 Decel [place]: 2.26 Aortic Valve AoV Pk Ramesh: 1.29 AoV Pk Grad: 7.00 CARLITOS: 2.75 LVOT LVOT Pk Ramesh: 1.13 LVOT Mn Ramesh: 0.78 LVOT VTI: 0.23 LVOT Pk Grad: 5.00 LVOT Mn Grad: 3.00 LVOT Diam: 2.00 LVOT Area: 3.14 Diastolic Function MV Pk E: 0.60 MV Pk A: 0.37 E/A: 1.60 E'Medial: 10.80 E/E' Med: 5.50 E' Laterial: 11.40 E/E' Lat: 5.20 Right Ventricle TAPSE (mm): 22.60 TVS' Ramesh: 16.20 Tricuspid Valve TR Pk Ramesh: 2.17 TR Pk Grad: 19.00 RA Press: 15.00 RVSP: 34.00 Great Vessels Aorta Sinus of Valsalva: 2.90 2.0-3.5 cm Ao Asc: 3.10 2.1-3.4 cm Pulmonary Veins Pulm Vein S/D 1.10 Pulmonary Valve PV Pk Ramesh: 0.80 Peak PV Grad: 3.00 Updated in Other Vendor System with Status of Final Wes Horne MD electronically signed on 07/13/2022 12:30:22 PM with status of Final
--- NOTE | 2022-07-11 07:43 | CA_ITS ---
Acquisition Time: 2022-07-11 08:53:54 Total Exercise Time: 00:06:32 Test Indications: HTN, PAC'S Medications: SEE CHART Protocol: GEOVANNI Max HR: 150 BPM 85% of Pred: 176 BPM Max BP: 158/090 mmHG Max Work Load: 7.8 METS Exercise stress test with exercise 6 min 32 sec of Geovanni protocol, achieving 85% MPHR, without anginal symptoms, with isolated PACs, with normotensive response to exercise, without EKG changes meeting criteria at peak exercise then in recovery there is a slight downsloping ST in leads III, V5 and V6. Will order a stress echocardiogram for further evaluation. Test reviewed with Dr Horne. Referred By: Darin Byrd Overread By: TAHMINA YATES
== END ==
LOC: HO.CARD 07:38
PROVIDERS: PCP Internal Medicine; Visit Provider Internal Medicine Cardiovascular Disease
DX: R07.9 Chest pain, unspecified (principal)
CPT/HCPCS: 93017; 93306; 93356

== ENCOUNTER → 2022-07-21 14:53 | Outpatient (BNVA) | payer OTHER, SELFPAY | PROVIDERS: PCP Internal Medicine; Visit Provider Obstetrics & Gynecology | DX: Z13.89 Encounter for screening for other disorder (principal) ==

== ENCOUNTER 2022-07-25 08:45 | Day surgery (SDC) | payer OTHER, SELFPAY ==
[2022-07-21 13:00] VITALS: BMI 27.9
--- NOTE | 2022-07-25 10:14 | MHC.SHP ---
Pre-Procedural Eval Section A Date of Service: 07/25/22 Section B Chief Complaint: Abnormal uterine and vaginal bleeding, Allergies: Allergies Allergy/AdvReac Type Severity Reaction Status Date / Time Penicillins [PENICILLINS] Allergy Intermediate RASH,ITCHY Verified 07/08/22 14:52 Plan I have reviewed the history and physical and performed a pertinent physical examination on my patient. No changes have occurred unless specified. Time Spent With Patient Time: Total time managing care of this patient today ____ minutes.
[2022-07-25] MEDS: Lactated Ringers 1,000 ML 80 ML IVCONT (10:35)
[2022-07-25 10:36] VITALS: BP 114/71; PULSE 62; RESP 16; TEMP 36.8; O2SAT 99
[2022-07-25 10:45] LABS: UPreg QC Valid YES; Urine Pregnancy NEGATIVE (NEGATIVE)
--- NOTE | 2022-07-25 11:12 | P.CONAN_ITS ---
HPI - Anesthesia Eval Consult details Narrative: hysteroscopy PMFSH Active Problems Active Problems: All Active Problems (Updated 07/21/22 @ 12:53 by Sadie Lanza, RN) Family history of colon cancer (Acute) LUQ abdominal pain (Acute) Language barrier (Acute) Tubular adenoma (Acute) HTN (hypertension) (Acute) Blurry vision, bilateral (Acute) Pituitary microadenoma (Acute) Diverticulosis of colon (Acute) Palpitations (Acute) Pure hypercholesterolemia (Acute) Polyp of corpus uteri (Acute) Cervical high risk HPV (human papillomavirus) test positive (Acute) Abnormal uterine bleeding (Acute) Uterine myoma (Acute) PAC (premature atrial contraction) (Acute) Physical exam (Acute) Right knee pain (Acute) Polyarthralgia (Acute) Abnormal stress ECG with treadmill (Acute) Chronic GERD (Acute) Chest pain (Acute) Iron deficiency anemia (Chronic) Abdominal pain (Acute) Past Medical History Medical History (Updated 07/21/22 @ 12:53 by Sadie Lanza, YAMILET) Abdominal pain Chest pain Chronic GERD Dyslipidemia Fibromyalgia HTN (hypertension) Hx of migraine headaches Iron deficiency anemia Family History Family History Maternal Grandmother Tracheal cancer Mother Hypertension Arthritis Father Hypertension Colon cancer Family history of problems with anesthesia: No Surgical History Surgical History (Updated 07/21/22 @ 11:52 by Sadie Lanza RN) H/O colonoscopy H/O left breast biopsy History of endometrial ablation History of esophagogastroduodenoscopy (EGD) History of loop electrical excision procedure (LEEP) History of Problems with Anesthesia: No Social History Social History Household Members: Spouse and Children Household Members Other:: 2 kids Housing: House Alcohol intake: never Patient Tobacco Use Status: Never used Tobacco e-Cigarette/Vaping Use: Never Used Second Hand Smoke Exposure: No Use of substances other than those prescribed or required for medical reasons: No Are you DNR?: No Advance Directives: No Advance Directives Information Provided: Yes service: No Current occupational status: employed 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 Current occupational exposures/hazards: No Cognitive needs: No Hearing needs: No Vision needs: No Meds Allergies Allergy/AdvReac Type Severity Reaction Status Date / Time Penicillins [PENICILLINS] Allergy Intermediate RASH,ITCHY Verified 07/08/22 14:52 Active Medications: Current Medications Lactated Ringer's (Lr) 1,000 mls @ 80 mls/hr IVCONT .[id number] ELSA Last Admin: 07/25/22 10:35 Dose: 80 mls/hr Exam Exam Date and Time: July 25, 2022 1112 Height,Weight and Vital Signs: Height 5 ft 4 in Weight 73.936 kg Last Vital Signs Temp 98.2 F 07/25/22 10:36 Pulse 62 07/25/22 10:36 Resp 16 07/25/22 10:36 BP 114/71 07/25/22 10:36 Pulse Ox 99 07/25/22 10:36 O2 Del Method 07/25/22 10:36 Pertinent Lab Results Pertinent Lab Results: Laboratory Tests 07/25/22 09:05 Urine Test NEGATIVE Narrative Narrative: Hx of atypical cp. Nl EF, stress echo recommended after Ecg stress test. Airway Mallampati Class: II TM Dist: >3cm Neck ROM: Full Heart: rrr Lungs: cta Assessment and Plan Assessment Anesthesia Assessment: Anesthesia Plan Discussed and Chart Reviewed Final Anesthetic Review Family History of Problems with Anesthesia: No History of Problems with Anesthesia: No ASA Class: II Final Preanesthetic Review: No Changes in Pt Med Stat and Meds/Allgs Chart Reviewed Patient Risk: Intermediate Procedure Risk: Low Anesthetic Plan Anesthetic Plan: GA and Agree w/ Assess. and Plan (By hx it appears to be non cardiac CS, short duration, no associated symptoms. Last time 3 days ago, lasting for a few seconds.) Disposition: Standard PACU
--- NOTE | 2022-07-25 11:58 | P.BOP_ITS ---
Brief Operative Note Date of Service: 07/25/22 Pre-op diagnosis: Abnormal uterine bleeding, endometrial polyp by ultrasound Post-op diagnosis: same (Endometrial polyp, intrauterine adhesions from previous endometrial ablation) Procedure: Hysteroscopy D&C, Polypectomy Surgeon: Luis Alfredo Blount MD Anesthesia: GLMA Was an Cert Occupational Therapy Asst used for this Procedure?: No Estimated blood loss (mL): 0 Pathology: other (Endometrial Scrapping. Polyp) Condition: stable Disposition: PACU
--- NOTE | 2022-07-25 11:59 | W.PM.OPN ---
Operative Note Operative Note Date of Service: 07/25/22 Narrative: Preop Diagnosis: Abnormal uterine bleeding, Endometrial polyp by US Operation: Diagnostic Hysteroscopy, Dilataion & Curettage and polypectomy Post Op Diagnosis: Endometrial Polyp, intrauterine adhesions from previous endometrial ablation QBL: Minimal Anesthesia: GLMA Surgeon: Luis Alfredo Blount MD Leather Belt Loop Cutter: None Complication: None Pathology: Endometrial Scrapings, Endometrial polyp Procedure: The patient was put in the dorsal lithotomy position, scrubbed, and draped in the usual manner. A sterile speculum was inserted in the patient's vagina. The anterior lip of the cervix was grasped with a single tooth tenaculum. The cervix was dilated up to 5 mm, then the scope was inserted in the patient's uterus. Inspection revealed endometrial polyp with intrauterine adhesions from previous endometrial ablation. The Myosure Reach device was used; it was introduced through the operative channel and polypectomy done with no complications. The scope was then taken out from the uterine cavity, sharp curettings was carried on with minimal to moderate amount of tissues retrieved. At the end of the procedure, all instruments were taken out of the patient uterine and vaginal cavity. The single tooth tenaculum was removed and homeostasis was assured using pressure,. The patient tolerated the procedure well and was transferred to the PACU in a stable condition.
[2022-07-25 12:06] VITALS: BP 104/58; PULSE 57; RESP 12; TEMP 36.1; O2SAT 99
[2022-07-25 12:11] VITALS: BP 117/61; PULSE 68; RESP 17; O2SAT 100
[2022-07-25 12:16] VITALS: BP 115/62; PULSE 54; RESP 17; O2SAT 98
[2022-07-25 12:21] VITALS: BP 113/65; PULSE 53; RESP 17; O2SAT 98
[2022-07-25 12:36] VITALS: BP 114/68; PULSE 51; RESP 18; TEMP 36.1; O2SAT 99
== END 2022-07-25 13:09 | disposition home or self-care (01) ==
PROVIDERS: PCP Internal Medicine; Visit Provider Obstetrics & Gynecology
PROC: 0UDB8ZZ Extraction of Endometrium, Via Natural or Artificial Opening Endoscopic (ICD-10-PCS; CPT 58558; principal; 2022-07-25 10:30)
DX: N93.9 Abnormal uterine and vaginal bleeding, unspecified (principal); N84.0 Polyp of corpus uteri; N73.6 Female pelvic peritoneal adhesions (postinfective); R87.810 Cervical high risk human papillomavirus (HPV) DNA test positive; N83.202 Unspecified ovarian cyst, left side; N83.201 Unspecified ovarian cyst, right side; I10 Essential (primary) hypertension; E78.5 Hyperlipidemia, unspecified; D50.9 Iron deficiency anemia, unspecified; Z79.899 Other long term (current) drug therapy; Z88.0 Allergy status to penicillin
CPT/HCPCS: 58558; 81025; 88305; J2405; J3010

== ENCOUNTER 2022-08-05 09:48 | Outpatient (REF) | payer OTHER, SELFPAY | END 2022-08-05 09:49 | disposition home or self-care (01) | LOC: HO.HOSX 09:48 | PROVIDERS: Visit Provider Physician Assistant | DX: Z13.89 Encounter for screening for other disorder (principal) ==

== ENCOUNTER 2022-08-06 10:03 | Outpatient (REF) | payer OTHER, SELFPAY ==
--- NOTE | ~2022-08-06 | XR_ITS ---
EXAMINATION: XR KNEE AP STANDING XR KNEE, RIGHT CLINICAL INFORMATION: Pain. COMPARISON: Left knee radiographs dated 08/07/2021. TECHNIQUE: AP bilateral standing view of the knees was obtained. Lateral and axial views of the right knee were obtained. FINDINGS: Bones and soft tissues are normal. No fracture or joint effusion. Alignment is anatomic. The bilateral lateral and medial joint space compartments are well maintained. The right patellofemoral compartment is well-maintained. No abnormal soft tissue calcification. XR/XR knee standing BI IMPRESSION: Normal right knee radiographs and AP view of the bilateral knees.
--- NOTE | ~2022-08-06 | XR_ITS ---
EXAMINATION: XR KNEE AP STANDING XR KNEE, RIGHT CLINICAL INFORMATION: Pain. COMPARISON: Left knee radiographs dated 08/07/2021. TECHNIQUE: AP bilateral standing view of the knees was obtained. Lateral and axial views of the right knee were obtained. FINDINGS: Bones and soft tissues are normal. No fracture or joint effusion. Alignment is anatomic. The bilateral lateral and medial joint space compartments are well maintained. The right patellofemoral compartment is well-maintained. No abnormal soft tissue calcification. XR/XR knee RT 2V IMPRESSION: Normal right knee radiographs and AP view of the bilateral knees.
== END 2022-08-06 10:04 | disposition home or self-care (01) ==
LOC: HO.HOSX 10:03
PROVIDERS: Visit Provider Physician Assistant
DX: M25.561 Pain in right knee (principal); M23.91 Unspecified internal derangement of right knee
CPT/HCPCS: 73560; 73565

== ENCOUNTER → 2022-08-11 15:04 | Outpatient (BNVA) | payer OTHER, SELFPAY | PROVIDERS: PCP Internal Medicine; Visit Provider Obstetrics & Gynecology | DX: Z13.89 Encounter for screening for other disorder (principal) ==

== ENCOUNTER → 2022-09-15 11:03 | Outpatient (REF) | payer OTHER, SELFPAY ==
--- NOTE | 2022-09-15 11:06 | CA_ITS ---
Acquisition Time: 2022-09-15 11:13:14 Total Exercise Time: 00:06:30 Test Indications: ABN ETT Medications: HCTZ Protocol: GEOVANNI Max HR: 151 BPM 86% of Pred: 175 BPM Max BP: 128/080 mmHG Max Work Load: 7.7 METS Exercise stress test with exercise 6 min 30 sec of Geovanni protocol achieving 86% MPHR and request to stop due to leg fatigue, without anginal symptoms, with isolated PACs, with normotensive response to exercise, without EKG changes meeting criteria for ischemia at peak exercise, in recovery there is J point depression with upsloping STs then nonspecifc ST abnormalities. Echo images obtained by tech at rest and immediately post peak exercise. Definity contrast used. Heart rate noted to correct quickly in recovery Test reviewed with Dr Calderon. Referred By: Danyelle Gar Overread By: DANYELLE GAR
== END ==
LOC: HO.CARD 11:03
PROVIDERS: Visit Provider Nurse Practitioner Family
DX: R07.9 Chest pain, unspecified (principal); R94.39 Abnormal result of other cardiovascular function study
CPT/HCPCS: 93350; Q9957

== ENCOUNTER → 2022-10-08 14:30 | Outpatient (BNVA) | payer OTHER, SELFPAY | PROVIDERS: PCP Internal Medicine; Visit Provider Student in an Organized Health Care Education/Training Program | DX: Z13.89 Encounter for screening for other disorder (principal) ==

== ENCOUNTER 2022-10-09 14:48 | Outpatient (REF) | payer OTHER, SELFPAY ==
[2022-10-09 15:07] LABS: MANUAL DIFF FLAG NO
[2022-10-09 15:25] LABS: Basophils Percent Auto 0.3 % (0-2); Eosinophils Absolute Auto 0.1 X10*3/uL (0.0-0.4); Eosinophils Percent Auto 0.8 % (0-4); Hematocrit 38.7 % (37.0-47.0); Hemoglobin 12.4 g/dl (12.0-16.0); Imm Gran Abs Auto 0.01 X10*3/uL (0.00-0.03); Imm Gran Pct Auto 0.2 % (0.0-0.4); Lymphocytes Absolute Auto 2.7 X10*3/uL (1.2-4.9); Lymphocytes Percent Auto 42.9 % (20-40); Mean Corpuscular Hemoglobin 28.1 pg (27.0-33.0); Mean Corpuscular Volume 87.6 fL (80.0-98.0); Mean Platelet Volume 10.4 fL (9.4-12.3); Monocytes Absolute Auto 0.4 X10*3/uL (0.1-1.2); Monocytes Percent Auto 6.8 % (2-11); Neutrophils Absolute Auto 3.1 x10*3/uL (2.0-8.3); Platelet Count 298 X10*3/uL (160-400); Red Blood Count 4.42 X10*6/uL (4.20-5.50); Red Cell Distribution Width 12.2 % (11.0-16.0); White Blood Count 6.4 X10*3/uL (4.8-10.8)
[2022-10-09 15:54] LABS: Alanine Aminotransferase 16 U/L (0-31); Albumin Level 4.3 g/dL (3.5-5.0); Alkaline Phosphatase 78 U/L (39-117); Anion Gap 11 (12-20); Aspartate Amino Transferase 16 U/L (5-31); Bilirubin Total 0.4 mg/dL (0.0-1.0); Blood Urea Nitrogen 15 mg/dL (9-16); Calcium 9.6 mg/dL (8.4-10.2); Carbon Dioxide 30 mmol/L (22-29); Chloride 106 mmol/L (96-108); Estimated Glomerular Filt Rate > 60; Glucose Random 87 mg/dL (60-115); Potassium 4.1 mmol/L (3.3-5.1); Sodium 143 mmol/L (135-145); Total Protein 7.4 g/dL (6.5-8.0)
== END 2022-10-09 14:49 | disposition home or self-care (01) ==
LOC: HO.LAB 14:48
PROVIDERS: Visit Provider Student in an Organized Health Care Education/Training Program
DX: M25.50 Pain in unspecified joint (principal)
CPT/HCPCS: 36415; 80053; 85025

== ENCOUNTER → 2022-10-21 14:40 | Outpatient (BNVA) | payer OTHER, SELFPAY | PROVIDERS: PCP Internal Medicine; Referring Provider Internal Medicine; Visit Provider Internal Medicine Cardiovascular Disease ==

== ENCOUNTER 2022-10-25 08:11 | Outpatient (REF) | payer OTHER, SELFPAY ==
[2022-10-25 09:35] LABS: Alanine Aminotransferase 15 U/L (0-31); Alkaline Phosphatase 76 U/L (39-117); Anion Gap 12 (12-20); Aspartate Amino Transferase 16 U/L (5-31); Bilirubin Total 0.8 mg/dL (0.0-1.0); Blood Urea Nitrogen 9 mg/dL (9-16); Calcium 9.4 mg/dL (8.4-10.2); Carbon Dioxide 27 mmol/L (22-29); Chloride 107 mmol/L (96-108); Cholesterol 225 mg/dL; Estimated Glomerular Filt Rate > 60; Glucose Fasting 86 mg/dL (60-99); HDL Cholesterol 54 mg/dL; LDL Cholesterol Calculated 157 mg/dl; Potassium 4.2 mmol/L (3.3-5.1); Sodium 142 mmol/L (135-145); Total Protein 6.9 g/dL (6.5-8.0); Triglycerides 72 mg/dL
== END 2022-10-25 08:12 | disposition home or self-care (01) ==
LOC: HO.LAB 08:11
PROVIDERS: PCP Internal Medicine; Visit Provider Internal Medicine
DX: Z00.00 Encounter for general adult medical examination without abnormal findings (principal); E78.5 Hyperlipidemia, unspecified
CPT/HCPCS: 36415; 80053; 80061

== ENCOUNTER 2023-06-22 15:10 | Outpatient (AMB) | payer OTHER, SELFPAY ==
--- NOTE | 2023-06-22 15:12 | A.OFFVIS_ITS ---
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 No complaints. Last Pap/HPV was negative/HPV high-risk positive in 02/03, colpo biopsy was negative Last Mammogram was BI-RADS 1 in 01/03 No previous screening colonoscopy PFSH Medical History Chronic GERD Dyslipidemia Chest pain Hx of migraine headaches Abdominal pain HTN (hypertension) Iron deficiency anemia Surgical History History of esophagogastroduodenoscopy (EGD) H/O colonoscopy History of endometrial ablation History of loop electrical excision procedure (LEEP) H/O left breast biopsy Family History Maternal Grandmother Tracheal cancer Mother Hypertension Arthritis Father Hypertension Colon cancer Social History Household Members: Spouse and Children Household Members Other:: 2 kids Housing: House Alcohol intake: never Patient Tobacco Use Status: Never used Tobacco e-Cigarette/Vaping Use: Never Used Second Hand Smoke Exposure: No service: No Current occupational status: employed 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 Current occupational exposures/hazards: No Cognitive needs: No Hearing needs: No Vision needs: Yes Female Reproductive History Menstrual Age of Menarche: 14 control method: none Date of menopause: 05/22/21 Date of last pap smear: 02/11/22 History of abnormal pap smear: Yes Review of Systems Const All systems reviewed & are unremarkable except as noted in HPI and below Card Reports as per HPI Resp Reports as per HPI GI Reports as per HPI and Reports no additional complaints Reports as per HPI Physical Exam Vital Signs: Last Vital Signs BP 132/84 06/22/23 15:13 BMI result Body Mass Index 26.9 Const General: cooperative, healthy appearing and comfortable Chest Chest palpation & inspection: normal inspection of the chest and normal palpation of entire chest wall Breast/axilla inspection: normal inspection of the breasts and normal inspection of the axillae Breast/axilla palpation: normal palpation of the breasts, normal palpation of the axillae and no axillary lymphadenopathy Resp Effort & Inspection: normal respiratory effort Auscultation: clear to auscultation bilaterally Percussion: percussion normal Cardio Palpation: normal PMI Rate: regular rate Rhythm: regular rhythm Heart sounds: no murmurs and no rubs Peripheral pulses: Peripheral pulses 2+ throughout GI Inspection: Yes normal to inspection Palpation (GI): Soft to palpation, nontender, no guarding, not rigid and No hepatosplenomegaly present Percussion: Yes normal to percussion Auscultation: normal bowel sounds Rectal Exam - Female: deferred General: Yes bladder normal to palpation External Female Exam: No lesion Speculum Exam - Vagina: normal appearance of the vagina, normal palpation, normal vaginal discharge and not erythematous Speculum Exam - Cervix: normal appearance of the cervix and normal palpation Bimanual exam- vagina & uterus: normal bimanual exam, normal palpation, uterine size normal, bladder normal to palpation, consistency normal and normal palpation Bimanual Exam- Adnexa, other: normal adnexae, no masses and no tenderness Assessment & Plan Assessment & Plan (1) Well woman exam: Code(s): Z01.419 - Encounter for gynecological examination (general) (routine) without abnormal findings Plan: Co testing done. Counseled the patient about the recommended dietary allowance of 1200 mg of Calcium & 600 IU of vitamin D. Mammogram ordered. The patient was referred to GI for screening colonoscopy . The patient was instructed to perform monthly self-breast exams and schedule annual exam in a year. All questions answered and the patient verbalized understanding. Orders: Orders MM tomosynthesis screening BI Today Z12.31 - Encounter for screening mammogram for malignant neoplasm of breast Pap Smear Today Z01.419 - Encounter for gynecological examination (general) (routine) without abnormal findings Referrals Gastroenterology Referral Z12.11 - Encounter for screening for malignant neoplasm of colon Coding Level of Care Code Est Pt Prev Care 40-64y(08139) Diagnoses Well woman exam Z01.419
[2023-06-22 15:13] VITALS: BP 132/84; BMI 26.9
== END 2023-06-22 16:07 | disposition home or self-care (01) ==
LOC: HO.HWS 15:10
PROVIDERS: PCP Internal Medicine; Visit Provider Obstetrics & Gynecology
DX: Z01.419 Encounter for gynecological examination (general) (routine) without abnormal findings (principal)
CPT/HCPCS: 99396

== ENCOUNTER 2023-06-22 15:10 | Outpatient (REF) | payer OTHER, SELFPAY ==
[2023-06-27 13:39] LABS: HPV mRNA E6/E7 rflx Not Detected (Not Detected)
== END 2023-06-22 15:11 | disposition home or self-care (01) ==
LOC: HO.LNP 15:10
PROVIDERS: PCP Internal Medicine; Visit Provider Obstetrics & Gynecology
DX: Z01.419 Encounter for gynecological examination (general) (routine) without abnormal findings (principal); Z11.51 Encounter for screening for human papillomavirus (HPV)
CPT/HCPCS: 87624; 88142

== ENCOUNTER 2023-07-10 07:55 | Outpatient (REF) | payer OTHER, SELFPAY ==
[2023-07-10 10:14] LABS: Alanine Aminotransferase 15 U/L (0-31); Alkaline Phosphatase 68 U/L (39-117); Anion Gap 13 (12-20); Aspartate Amino Transferase 19 U/L (5-31); Bilirubin Total 0.5 mg/dL (0.0-1.0); Blood Urea Nitrogen 11 mg/dL (9-16); Calcium 9.3 mg/dL (8.4-10.2); Carbon Dioxide 29 mmol/L (22-29); Chloride 102 mmol/L (96-108); Cholesterol 189 mg/dL (<200); Estimated Glomerular Filt Rate > 60; Glucose Fasting 84 mg/dL (60-99); HDL Cholesterol 50 mg/dL (>40); LDL Cholesterol Calculated 127 mg/dL (<100); Potassium 3.2 mmol/L (3.3-5.1); Sodium 141 mmol/L (135-145); Total Protein 7.4 g/dL (6.5-8.0); Triglycerides 64 mg/dL (<150)
== END 2023-07-10 07:56 | disposition home or self-care (01) ==
LOC: HO.LAB 07:55
PROVIDERS: PCP Internal Medicine; Visit Provider Internal Medicine
DX: E78.5 Hyperlipidemia, unspecified (principal); I10 Essential (primary) hypertension
CPT/HCPCS: 36415; 80053; 80061

== ENCOUNTER 2023-07-11 08:47 | Outpatient (REF) | payer OTHER, SELFPAY ==
--- NOTE | ~2023-07-11 | MM_ITS ---
EXAMINATION: MM SCREENING DIGITAL BREAST TOMOSYNTHESIS, BILATERAL CLINICAL INFORMATION: Screening. Asymptomatic. COMPARISON: Mammography: This study is compared with prior exams dating back to 2017. TECHNIQUE: Digital breast tomosynthesis is performed in both the craniocaudal and mediolateral oblique views along with computer-aided detection (CAD). Synthesized 2D images are generated from the tomosynthesis. FINDINGS: The breasts are heterogeneously dense, which may obscure small masses (ACR BI-RADS breast composition Category c). There are no significant masses, abnormal calcifications, or other abnormalities. There is a tissue marker in the left breast from prior benign percutaneous biopsy. MM/MM tomosynthesis screening BI IMPRESSION: No mammographic evidence of malignancy. ASSESSMENT: BI-RADS BI-RADS 2 - Benign Findings RECOMMENDATION: Routine annual mammography screening. 1 year F/U This examination should not preclude the clinical evaluation of a suspicious palpable abnormality. This patient's information was entered into a reminder system with a target due date for their next mammogram.
== END 2023-07-11 08:48 | disposition home or self-care (01) ==
LOC: HO.MAMMO 08:47
PROVIDERS: PCP Internal Medicine; Visit Provider Obstetrics & Gynecology
DX: Z12.31 Encounter for screening mammogram for malignant neoplasm of breast (principal)
CPT/HCPCS: 77063; 77067

== ENCOUNTER → 2023-07-11 09:00 | Outpatient (BNV) | payer OTHER, SELFPAY | PROVIDERS: PCP Internal Medicine; Visit Provider Radiology Diagnostic Radiology | DX: Z12.31 Encounter for screening mammogram for malignant neoplasm of breast (principal) | CPT/HCPCS: 77063; 77067 ==

== ENCOUNTER 2023-07-13 16:32 | Outpatient (AMB) | payer OTHER, SELFPAY ==
[2023-07-13 16:45] VITALS: BP 130/80; BMI 28.0
--- NOTE | 2023-07-13 16:45 | A.OFFPC_ITS ---
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 Accompanied by: Self / Same As Patient Allergies Penicillins [PENICILLINS] Allergy (Intermediate, Verified 07/13/23 17:17) RASH,ITCHY Medication List - Last Reconciled 07/13/23 by Patricia Santos MD hydrochlorothiazide 12.5 mg PO DAILY 90 days Tobacco use date assessed: 07/13/23 Dental Screening Dental Screen Date: 07/13/23 Did you have a dental visit in the last 12 months?: Yes Did you have a dental problem in the last 6 months where you did not have access to dental care?: No Was dental information given to patient?: Patient has dentist HPI HPI Comments History of Present Illness Details This is a 47-year-old female that comes for her physical exam. Last Pap smear was June 2023. Last mammogram was June 2023. Last colonoscopy was 2020. No chest pain or shortness of breath. Doing well. [facility] Medical History (Updated 07/13/23 @ 17:24 by Patricia Santos MD) Chronic GERD Dyslipidemia Chest pain Hx of migraine headaches Abdominal pain HTN (hypertension) Iron deficiency anemia Surgical History History of esophagogastroduodenoscopy (EGD) H/O colonoscopy History of endometrial ablation History of loop electrical excision procedure (LEEP) H/O left breast biopsy Family History (Updated 07/13/23 @ 17:20 by Patricia Santos MD) Maternal Grandmother Tracheal cancer Mother Hypertension Arthritis Father Hypertension Pancreatic cancer Social History Household Members: Spouse and Children Household Members Other:: 2 kids Housing: House Alcohol intake: never Patient Tobacco Use Status: Never used Tobacco e-Cigarette/Vaping Use: Never Used Second Hand Smoke Exposure: No service: No Current occupational status: unemployed Cognitive needs: No Hearing needs: No Vision needs: Yes Female Reproductive History Menstrual Age of Menarche: 14 Date of menopause: 05/22/21 Questionnaire PHQ-9 Over the last 2 weeks, how often have you been bothered by any of the following problems? 1. Little interest or pleasure in doing things: not at all 2. Feeling down, depressed, or hopeless: not at all 3. Trouble falling or staying asleep, or sleeping too much: not at all 4. Feeling tired or having little energy: not at all 5. Poor appetite or overeating: not at all 6. Feeling bad about yourself - or that you are a failure or have let yourself or your family down: not at all 7. Trouble concentrating on things, such as reading the newspaper or watching television: not at all 8. Moving or speaking so slowly that other people could have noticed. Or the opposite - being so fidgety or restless that you have been moving around a lot more than usual: not at all 9. Thoughts that you would be better off or of hurting yourself in some way: not at all Total score: 0 Depression Screening Interpretation: Negative Depression Screening Done: Yes 72093 - PHQ-9 Billing: Yes Source: Developed by Drs. Mir Fuller, Jannet Engel, Efrain Reddy and colleagues, with an educational caty from [employer]. Thrive Questionnaire Date Thrive assessed: 07/13/23 I am a: Patient What is your living situation today?: I have a steady place to live Within the past 12 months, did the food you bought not last and you didn't have the money to get more?: Never true Within the past 12 months, did you worry whether your food would run out before you got money to buy more?: Never true Do you have trouble paying for medicines?: No Do you have trouble getting transportation to medical appointments?: No Do you have trouble paying your heating and electricity bill?: No Do you have trouble taking care of your child, family member or friend?: No Do you have trouble with day-to-day activities such as bathing, preparing meals, shopping, managing finances, etc.?: No Are you currently unemployed and looking for a job?: No Are you interested in more education?: No Please select the resources that you would like help with: None Currently or been in a relationship where the following occur: no concerns reported THRIVE Score: 0 AUDIT C Alcohol Use Questionnaire (AUDIT-C) 1. How often do you have a drink containing alcohol?: Never Total Score: 0 JAMES-7 AMB Questionnaire JAMES-7 Date JAMES - 7 assessed: 07/13/23 Feeling nervous, anxious, or on edge: 0 = Not at all Not being able to stop or control worryin = Not at all Worrying too much about different things: 0 = Not at all Trouble relaxin = Not at all Being so restless that it is hard to sit still: 0 = Not at all Becoming easily annoyed or irritable: 0 = Not at all Feeling afraid as if something awful might happen: 0 = Not at all Total JAMES-7 score (0-4 normal; 5-9 mild; 10-14 moderate; 15-21 severe): 0 Source: Developed by Drs. Mir Fuller, Jannet Engel, Efrain Reddy and colleagues, with an educational caty from [employer]. JAMES-7 Assessment Billing JAMES-7 Assessment Tool: JAMES-7 Assessment 67134 Review of Systems Const All systems reviewed & are unremarkable except as noted in HPI and below Eyes Reports no additional complaints, Denies change in vision and Denies other visual disturbances Card Denies chest pain at rest, Denies chest pain with activity, Denies edema, Denies irregular heart rhythm, Denies claudication, Denies dyspnea, Denies dyspnea on exertion, Denies orthopnea, Denies paroxysmal nocturnal dyspnea and Denies slow heart rate Resp Denies cough, Denies dyspnea and Denies dyspnea on exertion GI Denies abdominal pain, Denies change in bowel habits, Denies excessive flatus, Denies nausea and Denies vomiting Denies urinary incontinence, Denies urinary hesitancy and Denies urinary urgency Musc Denies abnormal gait, Denies atrophy, Denies deformity and Denies limited range of motion Skin/Breast Denies bleeding lesions, Denies changing lesions and Denies rash Neuro Denies abnormal gait, Denies behavioral changes, Denies confusion and Denies lack of coordination Psych Denies behavioral changes and Denies confusion Physical exam (Primary Care) Vital Signs: Last Vital Signs BP 130/80 07/13/23 16:45 BMI result Body Mass Index 28.0 Tobacco/Smoking Status: Tobacco use Status Tobacco use date assessed 07/13/23 07/13/23 16:53 Patient Tobacco Use Status Never used Tobacco 07/13/23 16:53 e-Cigarette/Vaping Use Never Used 07/13/23 16:53 PHQ-9: PHQ-9 Score PHQ-9: Total score 0 07/13/23 17:23 Depression Screening Interpretation: Negative Thrive Assessment: Date of Thrive Assessment Date Thrive assessed 07/13/23 07/13/23 16:59 Currently or been in a relationship where the following occur: no concerns reported Const General: No confusion Orientation/consciousness: patient oriented x3 and No confusion HENMT Head: Yes normal to inspection, Yes normocephalic and Yes atraumatic Ears: external ears normal Eyes General: appearance normal, both eyes and all related structures Eyelids: Yes eyelids normal Conjunctivae: conjunctivae normal Neck Neck: Yes normal visual inspection and Yes supple Resp Effort & Inspection: normal respiratory effort Auscultation: clear to auscultation bilaterally Cardio Jugular venous distension: no JVD Rate: regular rate Rhythm: regular rhythm Heart sounds: S1 normal heart sound present and S2 normal heart sound present GI Inspection: Yes normal to inspection Palpation (GI): Soft to palpation and nontender Auscultation: normal bowel sounds Skin General skin exam: no rashes or lesions noted Neuro General: patient oriented x3, no focal motor deficits and No confusion Extrem General: Yes full ROM Psych Appearance: grossly normal Assessment and Plan Assessment & Plan (1) Physical exam: Code(s): Z00.00 - Encounter for general adult medical examination without abnormal findings Plan: Repeat in a year. Orders: Orders Potassium Today E87.6 - Hypokalemia Coding Level of Care Code Est Pt Prev Care 40-64y(33278) Diagnoses Physical exam Z00.00 Additional Codes JAMES-7 Assessment Billing - JAMES-7 Assessment Tool: JAMES-7 Assessment 42355 ([id number]) Time Spent (min) 32
== END 2023-07-13 17:24 | disposition home or self-care (01) ==
PROVIDERS: Visit Provider Internal Medicine
DX: Z00.00 Encounter for general adult medical examination without abnormal findings (principal)
CPT/HCPCS: 99396

== ENCOUNTER → 2024-02-23 10:16 | Outpatient (RCR) | payer OTHER, SELFPAY ==
[2020-10-30 15:22] VITALS: BP 153/76; PULSE 67; RESP 18; TEMP 36.8; O2SAT 100; BMI 27.3
--- NOTE | 2020-10-30 15:42 | PM.HEMONCPN ---
Medical Summary - Medical Summary Date of Service: 10/30/20 Chief complaint: Follow-up Medical Summary: Diagnosis: Iron deficiency anemia Hemoglobin 9.4, MCV 72.7. Serum iron 23, iron saturation 6%, ferritin 20, vitamin B12 307. Normal folate and TSH. Interval History Interval history: Patient is here in follow-up, she is accompanied by her today. She is doing well but reports that she has not had her period in the last 3 months. She has not been taking oral iron supplementation for about a year. She denies any complaints such as heartburn or reflux symptoms. No change in bowel habits, hematochezia or melena. No family history of any malignancy. She reports mild fatigue. No exertional chest pain, shortness of breath or dizziness. Review of Systems - Constitutional Reports as per HPI, Reports no additional constitutional complaints - Cardiovascular Reports no additional cardiovascular complaints - Respiratory Reports no additional respiratory complaints - Gastrointestinal Reports no additional gastrointestinal complaints [facility] Medical History: Medical History (Last Updated 10/30/20 @ 15:50 by Cayla Holley RN) Fibromyalgia Family History: Family History (Last Updated 10/30/20 @ 15:53 by Cayla Holley RN) Maternal Grandmother Tracheal cancer Mother Hypertension Father Hypertension Surgical History: Surgical History (Last Updated 10/30/20 @ 15:51 by Cayla Holley RN) H/O dilation and curettage H/O left breast biopsy Social History: Social History (Last Updated 10/30/20 @ 15:54 by Cayla Holley RN) Alcohol History: Alcohol intake: never Tobacco History: Smoking Status: Never smoker Oncology Screenings - ECOG Performance Status ECOG Performance Status: 0 Home Medications and Allergies Home Medications Medication Instructions Recorded Confirmed Type meloxicam 1 tab PO DAILY 10/30/20 10/30/20 History meloxicam 1 tab PO DAILY PRN 10/30/20 10/30/20 History Allergies Allergy/AdvReac Type Severity Reaction Status Date / Time penicillin G Allergy Unknown Rash/itchin Verified 11/17/19 00:00 g Penicillins [PENICILLINS] Allergy Unknown RASH,ITCHY Unverified 03/01/20 19:38 Exam Vital signs: Vital Signs Temp Pulse Resp BP Pulse Ox 10/30/20 15:22 98.2 F 67 18 153/76 H 100 Intake and Output 10/30/20 10/31/20 10/31/20 22:59 06:59 14:59 Other: Weight 72.3 kg [place] Weight in Grams [id number] - Constitutional Present: no acute distress - Routine HEENT Exam Head: Present: normal inspection Eye: Present: EOMI, PERRL - Routine Neck Exam Absent: lymphadenopathy - Routine Respiratory Exam Present: CTAB - Routine Cardiovascular Exam Cardiovascular: Present: S1, S2 - Routine Abdominal Exam Present: normal bowel sounds, soft - Routine Extremities Exam Absent: pedal edema - Routine Skin Exam Present: intact. Absent: cyanosis - Routine Neurological Exam Present: oriented X3 Data - Labs CBC & Chem 7: 10/30/20 15:37 10/30/20 15:37 Progress Note: A/P (1) Iron deficiency anemia Status: Chronic Assessment and plan: 1. This is a 45-year-old iron deficiency anemia. Probable chronic anemia related to menstrual blood losses combined with poor dietary absorption. She had previous responded well to oral iron therapy. She stop taking iron several months ago. She no longer has menstrual cycles. Blood work shows mild normocytic anemia with iron deficiency. I am starting her back on ferrous sulfate three twenty five mg p.o. b.i.d.. Although she does not have significant GI complaints, she is being referred to GI because of persistent iron deficiency in spite of lack of menstrual blood losses. Follow-up in 3 months. - Time Spent With Patient Total time spent is greater than 50% in coordination of care (as documented) at patient's floor/unit and/or counseling patient: 25 - 35 minutes
[2020-10-30 15:46] LABS: MANUAL DIFF FLAG NO
[2020-10-30 15:51] LABS: Basophils Percent Auto 0.4 % (0-2); Eosinophils Absolute Auto 0.1 X10*3/uL (0.0-0.4); Eosinophils Percent Auto 0.7 % (0-4); Hematocrit 36.6 % (37-47); Hemoglobin 11.7 g/dl (12.0-16.0); Imm Gran Abs Auto 0.01 X10*3/uL (0.00-0.03); Imm Gran Pct Auto 0.1 % (0.0-0.4); Lymphocytes Percent Auto 29.8 % (20-40); Mean Corpuscular Hemoglobin 28.4 pg (27.0-33.0); Mean Corpuscular Volume 88.8 fL (80-98); Mean Platelet Volume 10.4 fL (9.4-12.3); Monocytes Absolute Auto 0.6 X10*3/uL (0.1-1.2); Monocytes Percent Auto 8.4 % (2-11); Neutrophils Absolute Auto 4.1 X10*3/uL (2.0-8.3); Neutrophils Percent Auto 60.6 % (45-73); Platelet Count 248 X10*3/uL (160-400); Red Blood Count 4.12 X10*6/uL (4.20-5.50); Red Cell Distribution Width 12.9 % (11.0-16.0); White Blood Count 6.8 X10*3/uL (4.8-10.8)
--- NOTE | 2020-10-30 16:14 | MHC.HEMONC ---
yearly f/u with Dr Pedersen. Labs to be reviewed.
[2020-10-30 16:21] LABS: Alanine Aminotransferase 18 U/L (0-31); Alkaline Phosphatase 79 U/L (39-117); Anion Gap 11 (12-20); Aspartate Amino Transferase 20 U/L (5-31); Bilirubin Total 0.4 mg/dL (0.0-1.0); Blood Urea Nitrogen 9 mg/dL (9-16); Calcium 8.7 mg/dL (8.4-10.2); Carbon Dioxide 25 mmol/L (22-29); Chloride 106 mmol/L (96-108); Creatinine Clr Calc Pharmacy 99.5; Estimated Glomerular Filt Rate > 60; Glucose Random 83 mg/dL (60-115); Iron 45 mcg/dL (30-160); Percent Iron Saturation 14 % (15-50); Potassium 3.9 mmol/L (3.3-5.1); Sodium 138 mmol/L (135-145); Total Iron Binding Capacity 324 mcg/dL (228-428); Unsaturated Iron Binding 279 ug/dL
[2020-10-30 17:24] LABS: Folate 10.9 ng/mL (> or = 4.0); Vitamin B12 370 pg/mL (200-900)
--- NOTE | 2020-11-05 08:38 | MHC.HEMONCMA ---
Called to speak with Gastro to schedule the patient a consult, the patient is already scheduled for 11/19/2020 at 8:45am. Message was sent back to Kate so she can inform the patient.
--- NOTE | 2021-02-05 15:29 | P.PNHO_ITS ---
Medical Summary - Medical Summary Date of Service: 02/05/21 Chief complaint: Follow-up Medical Summary: Diagnosis: Iron deficiency anemia Hemoglobin 9.4, MCV 72.7. Serum iron 23, iron saturation 6%, ferritin 20, vitamin B12 307. Normal folate and TSH. Endoscopy/colonoscopy in 2020 showed benign polyp. Interval History Interval history: Patient is here in follow-up. She is doing quite well and has no complaints today. She denies any fatigue exertional shortness of breath or palpitation. She has had EGD and colonoscopy and was told that she only had a polyp. She is taking iron supplementation daily. Review of Systems - Constitutional Reports as per HPI, Reports no additional constitutional complaints [facility] Medical History: Medical History (Last Reviewed 02/05/21 @ 15:30 by Forrest Argueta) Abdominal pain Fibromyalgia HTN (hypertension) Hx of migraine headaches Iron deficiency anemia Family History: Family History (Last Reviewed 02/05/21 @ 15:31 by Forrest Argueta) Maternal Grandmother Tracheal cancer Mother Hypertension Father Hypertension Colon cancer Surgical History: Surgical History (Last Reviewed 02/05/21 @ 15:31 by Forrest Argueta) H/O dilation and curettage H/O left breast biopsy Social History: Social History (Last Reviewed 02/05/21 @ 15:31 by Forrest Argueta) Living Situation History: Household Members: Spouse Household Members: Children Household Members Other:: 2 kids Housing: House Alcohol History: Alcohol intake: never Alcohol History Details: Alcohol intake frequency: does not drink Tobacco History: Patient Tobacco Use Status: Never used Tobacco e-Cigarette/Vaping Use: Never Used Second Hand Smoke Exposure: No Occupation Assessmet: service: No Current occupational status: employed 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 Screenings - ECOG Performance Status ECOG Performance Status: 0 Home Medications and Allergies Allergies Allergy/AdvReac Type Severity Reaction Status Date / Time Penicillins [PENICILLINS] Allergy Intermediate RASH,ITCHY Verified 02/05/21 10:11 Exam Vital signs: Vital Signs Temp 98.2 F 10/30/20 15:22 Pulse 67 10/30/20 15:22 Resp 18 10/30/20 15:22 BP 153/76 H 10/30/20 15:22 Pulse Ox 100 10/30/20 15:22 Weight 72.3 kg Body Mass Index 27.3 - Constitutional Present: no acute distress - Routine HEENT Exam Head: Present: normal inspection - Routine Neck Exam Absent: lymphadenopathy - Routine Respiratory Exam Present: CTAB - Routine Cardiovascular Exam Cardiovascular: Present: S1, S2 - Routine Abdominal Exam Present: normal bowel sounds, soft - Routine Extremities Exam Absent: pedal edema - Routine Skin Exam Present: intact. Absent: cyanosis - Routine Neurological Exam Present: oriented X3 Data - Labs CBC & Chem 7: 02/05/21 15:32 10/30/20 15:37 Labs: 10/30/20 15:37 Complete Blood Count Auto Diff Routine Comprehensive Met. Panel Routine IRON PROFILE Routine 10/30/20 15:43 Vitamin B12 and Folate Routine 10/30/20 16:30 Add Laboratory Test Routine Laboratory Last Values WBC 6.8 X10*3/uL (4.8-10.8) 10/30/20 15:37 RBC 4.12 X10*6/uL (4.20-5.50) L 10/30/20 15:37 Hgb 11.7 g/dl (12.0-16.0) L 10/30/20 15:37 Hct 36.6 % (37-47) L 10/30/20 15:37 MCV 88.8 fL (80-98) 10/30/20 15:37 MCH 28.4 pg (27.0-33.0) 10/30/20 15:37 MCHC 32.0 g/dl (31.0-35.0) 10/30/20 15:37 RDW 12.9 % (11.0-16.0) 10/30/20 15:37 Plt Count 248 X10*3/uL (160-400) 10/30/20 15:37 MPV 10.4 fL (9.4-12.3) 10/30/20 15:37 Immature Gran % (Auto) 0.1 % (0.0-0.4) 10/30/20 15:37 Neut % (Auto) 60.6 % (45-73) 10/30/20 15:37 Lymph % (Auto) 29.8 % (20-40) 10/30/20 15:37 [place] % (Auto) 8.4 % (2-11) 10/30/20 15:37 Eos % (Auto) 0.7 % (0-4) 10/30/20 15:37 Baso % (Auto) 0.4 % (0-2) 10/30/20 15:37 Lymph # (Auto) 2.0 X10*3/uL (1.2-4.9) 10/30/20 15:37 [place] # (Auto) 0.6 X10*3/uL (0.1-1.2) 10/30/20 15:37 Eos # (Auto) 0.1 X10*3/uL (0.0-0.4) 10/30/20 15:37 Baso # (Auto) 0.0 X10*3/uL (0.0-0.2) 10/30/20 15:37 Abs Immat Gran (auto) 0.01 X10*3/uL (0.00-0.03) 10/30/20 15:37 Absolute Neuts (auto) 4.1 X10*3/uL (2.0-8.3) 10/30/20 15:37 Absolute Nucleated RBC 0.000 X10*3/uL (0.0-0.012) 10/30/20 15:37 Nucleated RBC % (auto) 0.0 /100WBC (0.0-0.2) 10/30/20 15:37 Sodium 138 mmol/L (135-145) 10/30/20 15:37 Potassium 3.9 mmol/L (3.3-5.1) 10/30/20 15:37 Chloride 106 mmol/L (96-108) 10/30/20 15:37 Carbon Dioxide 25 mmol/L (22-29) 10/30/20 15:37 Anion Gap 11 (12-20) L 10/30/20 15:37 BUN 9 mg/dL (9-16) 10/30/20 15:37 Creatinine 0.71 mg/dL (0.5-1.4) 10/30/20 15:37 Estim Creat Clear Calc 99.5 10/30/20 15:37 Estimated GFR > 60 10/30/20 15:37 Random Glucose 83 mg/dL (60-115) 10/30/20 15:37 Calcium 8.7 mg/dL (8.4-10.2) 10/30/20 15:37 Iron 45 mcg/dL (30-160) 10/30/20 15:37 TIBC 324 mcg/dL (228-428) 10/30/20 15:37 % Saturation 14 % (15-50) L 10/30/20 15:37 Unsat Iron Binding 279 ug/dL 10/30/20 15:37 Total Bilirubin 0.4 mg/dL (0.0-1.0) 10/30/20 15:37 AST 20 U/L (5-31) 10/30/20 15:37 ALT 18 U/L (0-31) 10/30/20 15:37 Alkaline Phosphatase 79 U/L (39-117) 10/30/20 15:37 Total Protein 7.0 g/dL (6.5-8.0) 10/30/20 15:37 Albumin 4.0 g/dL (3.5-5.0) 10/30/20 15:37 Vitamin B12 370 pg/mL (200-900) 10/30/20 15:43 Folate 10.9 ng/mL (> or = 4.0) 10/30/20 15:43 Progress Note: A/P (1) Iron deficiency anemia Problem details: Iron deficiency anemia referred by Hematology-iron supplements normal H&H-chronic intermittent right lower quadrant pain EGD/ colonoscopy r/o etiology Status: Chronic Assessment and plan: 1. This is a 45-year-old iron deficiency anemia. Probable chronic anemia related to previous menstrual blood losses combined with poor dietary absorption. Blood work shows resolution of anemia. She is on oral iron supplementation, she will be advised to cut it down to once daily. Her GI workup in 2020 was negative. Follow-up in 6 months. - Time Spent With Patient Time Spent with Patient (in minutes): 15
[2021-02-05 15:38] VITALS: BP 133/62; PULSE 70; RESP 14; TEMP 36.2; O2SAT 100; BMI 27.3
[2021-02-05 15:39] LABS: Hematocrit 38.2 % (37-47); Hemoglobin 12.3 g/dl (12.0-16.0); Mean Corpuscular HGB Conc 32.2 g/dl (31.0-35.0); Mean Corpuscular Hemoglobin 29.1 pg (27.0-33.0); Mean Corpuscular Volume 90.5 fL (80-98); Platelet Count 287 X10*3/uL (160-400); Red Blood Count 4.22 X10*6/uL (4.20-5.50); Red Cell Distribution Width 12.9 % (11.0-16.0); White Blood Count 6.6 X10*3/uL (4.8-10.8)
--- NOTE | 2021-02-05 15:47 | MHC.HEMONCMA ---
pt came in for hem follow up and states she is doing well. clinical summary was updated and labs were drawn. pt will be seen in 6 months for follow up.
[2021-02-05 16:14] LABS: Iron 119 mcg/dL (30-160)
[2021-02-06 14:58] LABS: Percent Iron Saturation 41 % (15-50); Total Iron Binding Capacity 292 mcg/dL (228-428); Unsaturated Iron Binding 173 ug/dL
== END | disposition home or self-care (01) ==
LOC: HO.ONC 10-30 15:20
PROVIDERS: PCP Internal Medicine; Visit Provider Internal Medicine
DX: D50.9 Iron deficiency anemia, unspecified (principal); Z79.899 Other long term (current) drug therapy
CPT/HCPCS: 36415; 80053; 82607; 82746; 83540; 85025; 85027; 99213; 99214

== ENCOUNTER 2024-05-04 13:05 | Emergency (ER) | payer OTHER, SELFPAY ==
[2024-05-04 13:08] VITALS: BP 153/83; PULSE 81; RESP 19; TEMP 36.6; O2SAT 99; BMI 24.5
--- NOTE | 2024-05-04 13:08 | ED_ITS ---
HPI - General Adult General Chief complaint: Urogenital-Female Stated complaint: vaginal bleeding-pain Time Seen by Provider: 05/04/24 13:31 Source: patient, RN notes reviewed and aerial photograph interpreter Mode of arrival: ambulatory Limitations: language barrier History of Present Illness ED Provider: Molly Pisano PA-C HPI narrative: This is a 48-year-old Northern Irish-speaking female, with a history of hypertension, who presents emergency department with complaints of dysuria, and hematuria which started last night. Patient denies any fevers, chills, chest pain, shortness of breath, abdominal pain, nausea, vomiting or diarrhea. No back pain. No changes in bowel habits. Denies history of similar symptoms in the past. She is sexually active with 1 partner. No concerns for sexually transmitted infections. No vaginal discharge or bleeding. Her last menses was 2 years ago. No chance of . No other complaints or concerns at this time. MD complaint: Urinary symptoms Onset (ago): day(s) Radiation: non-radiation Quality: burning Relieving factors: none Exacerbating factors: none Associated symptoms: denies other symptoms Treatments prior to arrival: none Related Data Previous Rx's ?Medication ?Instructions ?Recorded hydrochlorothiazide 12.5 mg tablet 12.5 mg PO DAILY 90 days #90 tabs 09/23/23 cefuroxime axetil 500 mg tablet 500 mg PO BID 7 days #14 tabs 05/04/24 phenazopyridine 100 mg tablet 100 mg PO TID PRN pain 6 doses #6 05/04/24 (Pyridium) tabs Allergies Allergy/AdvReac Type Severity Reaction Status Date / Time Penicillins [PENICILLINS] Allergy Intermediate RASH,ITCHY Verified 05/04/24 13:11 Review of Systems 2 Review of Systems: Yes all other systems are reviewed and are negative Constitutional: Constitutional: Reports as per HPI [facility] Past Medical History Attestation statement: The following information was validated with the patient. Medical History Chronic GERD Dyslipidemia Chest pain Hx of migraine headaches Abdominal pain HTN (hypertension) Iron deficiency anemia Surgical History History of esophagogastroduodenoscopy (EGD) H/O colonoscopy History of endometrial ablation History of loop electrical excision procedure (LEEP) H/O left breast biopsy Family History Family History Maternal Grandmother Tracheal cancer Mother Hypertension Arthritis Father Hypertension Pancreatic cancer Social History Social History Household Members: Spouse and Children Household Members Other:: 2 kids Housing: House Alcohol intake: never Patient Tobacco Use Status: Never used Tobacco e-Cigarette/Vaping Use: Never Used Second Hand Smoke Exposure: No service: No Current occupational status: unemployed Cognitive needs: No Hearing needs: No Vision needs: Yes Physical Exam ED Vital Signs: Vital Signs - 24 hr 05/04/24 13:08 Temperature 97.8 F Pulse Rate 81 Respiratory Rate 19 Blood Pressure 153/83 H Pulse Oximetry 99 Oxygen Delivery Method Room Air BMI result Body Mass Index 24.5 Const General: cooperative, comfortable and no acute distress Orientation/consciousness: patient oriented x3 Limitations: no limitations HENMT Head: Yes normal to inspection, Yes normocephalic and Yes atraumatic Ears: hearing grossly normal bilaterally General nose exam: Normal external nose present Face and sinus: Yes normal facial exam Mouth: Normal oral and palatal mucosa present, oropharynx normal and moist mucous membranes Throat: Yes posterior oropharynx normal Eyes General: appearance normal, both eyes and all related structures Eyelids: Yes eyelids normal Conjunctivae: conjunctivae normal Sclerae: sclerae normal Pupils: Equal, round and reactive pupils present EOM: EOMs intact bilaterally Neck Neck: Yes normal visual inspection, Yes full ROM and Yes no lymphadenopathy Lymphatic: no lymphadenopathy noted Chest Chest palpation & inspection: normal inspection of the chest Resp Effort & Inspection: normal respiratory effort and able to speak in complete sentences Auscultation: clear to auscultation bilaterally, no crackles, no rales, no rhonchi and no wheezes Cardio Rate: regular rate Rhythm: regular rhythm Heart sounds: S1 normal heart sound present and S2 normal heart sound present GI Other: Abdomen is soft, nontender, nondistended. Inspection: Yes normal to inspection General: Yes no CVA tenderness Back/Spine/Pelvis Back: no CVA tenderness Skin General skin exam: no rashes or lesions noted Trauma: no lacerations or abrasions Wounds: no wounds Neuro General: patient oriented x3 and moves all extremities Cranial nerves: Yes Equal, round and reactive pupils present Extrem General: Yes normal to inspection Right upper extremity: normal to inspection Left upper extremity: normal to inspection Right lower extremity: normal to inspection Left lower extremity: normal to inspection Course Course Course Narrative: This is a rapid medical exam performed by Norman Lawler NP: Additional HPI, ROS, PE not included below will be deferred to primary provider. Patient is a 48-year-old female with history of HTN, fibromyalgia, abnormal uterine bleeding presenting to the ED with complaint of hematuria, dysuria, difficulty urinating. Also complains of lower abdominal pain. Plan: labs, UA Reevaluation(s) Reevaluation #1: UA consistent with UTI. No evidence of BECKI. Given no abdominal pain, flank pain or CVAT, will treat as acute cystitis with ABX and pyridium. Educated on staying well hydrated and given strict return precautions. Pt understands and agrees with plan. Pt stable for d.c. beta hcg was ordered in triage, and returned at 6. Pt reports that she has been in perimenopause and has not had a regular menses in 2 years. Denies chance of . She has no vaginal bleeding/discharge or abdominal cramping. Discussed with patient and partner and advised to f/u with her obgyn regarding this. They understand and agree with plan. Stable for d.c. Medical Decision Making Medical Decision Making [facility] [place] Narrative: This is a [id number] who presents to the ER with complaints of hematuria and dysuria x 1 day. On arrival, patient is well appearing under no acute distress. ABdomen is soft and nontender. She reports pain and hematuria which started yesterday. No vaginal bleeding, and reports that she is in a perimenopausal state, has not had a regular menses in 2 years. No chance of . She has no CVAT. Vital signs WNL. DDX including UTI, pyelonephritis, nephroliathiasis, STI. She has no back pain, no abdominal pain at this time. She is afebrile. Plan: Labs, UA Differential Diagnosis Differential Diagnoses: The differential diagnosis associated with the presentation includes see above Admission/Observation Consideration of admission/observation: Escalation of care including admission/observation considered Lab Data [facility] [place] Lab Attestation statement: I reviewed the patient's lab results. Leukocytosis at 11.6k, Creatinine and BUN WNL. Urine with positive nitrites, blood, leukesterase consistent with UTI 05/04/24 13:20 05/04/24 13:20 Labs: Lab Results 05/04/24 Range/Units 13:20 WBC 11.6 H (4.8-10.8) X10*3/uL RBC 4.86 (4.20-5.50) X10*6/uL Hgb 13.9 (12.0-16.0) g/dl Hct 42.3 (37.0-47.0) % MCV 87.0 (80.0-98.0) fL MCH 28.6 (27.0-33.0) pg MCHC 32.9 (31.0-35.0) g/dl RDW 13.6 (11.0-16.0) % Plt Count 325 (160-400) X10*3/uL MPV 10.6 (9.4-12.3) fL Immature Gran % (Auto) 0.4 (0.0-0.4) % Neut % (Auto) 75.2 H (45-73) % Lymph % (Auto) 18.4 L (20-40) % Obion % (Auto) 5.6 (2-11) % Eos % (Auto) 0.1 (0-4) % Baso % (Auto) 0.3 (0-2) % Lymph # (Auto) 2.1 (1.2-4.9) X10*3/uL [place] # (Auto) 0.7 (0.1-1.2) X10*3/uL Eos # (Auto) 0.0 (0.0-0.4) X10*3/uL Baso # (Auto) 0.0 (0.0-0.2) X10*3/uL Abs Immat Gran (auto) 0.05 H (0.00-0.03) X10*3/uL Absolute Neuts (auto) 8.7 H (2.0-8.3) x10*3/uL Absolute Nucleated RBC 0.000 (0.0-0.012) X10*3/uL Nucleated RBC % (auto) 0.0 (0.0-0.2) /100WBC Sodium 141 (135-145) mmol/L Potassium 3.5 (3.3-5.1) mmol/L Chloride 102 (96-108) mmol/L Carbon Dioxide 33 H (22-29) mmol/L Anion Gap 10 L (12-20) BUN 12 (9-16) mg/dL Creatinine 0.85 (0.5-1.4) mg/dL Estim Creat Clear Calc 71.4 Estimated GFR > 60 Random Glucose 107 (60-115) mg/dL Calcium 9.6 (8.4-10.2) mg/dL Total Bilirubin 0.5 (0.0-1.0) mg/dL AST 25 (5-31) U/L ALT 31 (0-31) U/L Alkaline Phosphatase 101 (39-117) U/L Total Protein 8.1 H (6.5-8.0) g/dL Albumin 4.5 (3.5-5.0) g/dL Beta HCG, Quant 6 mIU/mL Urine Color Yellow Urine Appearance Cloudy Urine pH 6.0 (5.0-9.0) Ur Specific Kirby 1.015 (1.005-1.025) Urine Protein 100 (2+) H (Neg-Trace) mg/dL Urine Glucose (UA) Negative (Negative) mg/dL Urine Ketones Negative (Negative) mg/dL Urine Blood Large (3+) H (Negative) Urine Nitrite Positive H (Negative) Ur Leukocyte Esterase Large (3+) H (Negative) Urine RBC >20 H (0-2) /HPF Urine WBC >50 H (0-5) /HPF Ur Squamous Epith Cells 3-5 (0-2) /HPF Urine Bacteria 2+ (None Seen) Hyaline Casts 0-2 (0-2) /LPF Radiology Impression Discussion of test interpretation with radiology: I have reviewed the radiologist's reading. External Record Review External record reviewed: Inpatient record, Office record, Outpatient record, Prior outpatient labs, Prior outpatient radiology, Primary care record and Outside ED record Discharge Plan Discharge Clinical Impression: Urinary tract infection, Elevated serum hCG in female, not Patient Disposition: Home, Self-Care Instructions: Urinary Tract Infection in Women (ED) Additional Instructions: You were seen in the emergency department for urinary symptoms. Please take full course of antibiotics even if your symptoms improve. Take Pyridium as prescribed, this can help with your symptoms. Drink plenty of fluids and get plenty of rest. If any new or worsening symptoms occur including but not limited to high fevers, severe abdominal pain, inability to urinate, please seek emergent care. You also had a slight elevation in your blood hCG level. It is very important that you follow-up with your primary care physician and or your OBGYN, call today to make an appointment. Prescriptions: New cefuroxime axetil 500 mg tablet 500 mg PO BID 7 Days Qty: 14 0RF phenazopyridine [Pyridium] 100 mg tablet 100 mg PO TID PRN (Reason: pain) Qty: 6 0RF No Action hydrochlorothiazide 12.5 mg tablet 12.5 mg PO DAILY 90 Days Qty: 90 1RF Interventions: ED Discharge Assessment Last Done: 05/04/24 14:37 Discharge Date/Time: 05/04/24 14:38 Print Language: Northern Irish
[2024-05-04 13:24] LABS: MANUAL DIFF FLAG NO
[2024-05-04 13:26] LABS: Basophils Percent Auto 0.3 % (0-2); Eosinophils Percent Auto 0.1 % (0-4); Hematocrit 42.3 % (37.0-47.0); Hemoglobin 13.9 g/dl (12.0-16.0); Imm Gran Abs Auto 0.05 X10*3/uL (0.00-0.03); Imm Gran Pct Auto 0.4 % (0.0-0.4); Lymphocytes Absolute Auto 2.1 X10*3/uL (1.2-4.9); Lymphocytes Percent Auto 18.4 % (20-40); Mean Corpuscular HGB Conc 32.9 g/dl (31.0-35.0); Mean Corpuscular Hemoglobin 28.6 pg (27.0-33.0); Mean Platelet Volume 10.6 fL (9.4-12.3); Monocytes Absolute Auto 0.7 X10*3/uL (0.1-1.2); Monocytes Percent Auto 5.6 % (2-11); Neutrophils Absolute Auto 8.7 x10*3/uL (2.0-8.3); Neutrophils Percent Auto 75.2 % (45-73); Platelet Count 325 X10*3/uL (160-400); Red Blood Count 4.86 X10*6/uL (4.20-5.50); Red Cell Distribution Width 13.6 % (11.0-16.0); White Blood Count 11.6 X10*3/uL (4.8-10.8)
[2024-05-04 13:27] LABS: Appearance Urine Cloudy; Color Urine Yellow; Glucose Urine UA Negative (Negative); Leukocyte Esterase Urine Large (3+) (Negative); Nitrite Urine Positive (Negative); Specific Gravity - Urine 1.015 (1.005-1.025); UMIC TRIGGER UACC YES; Urine Blood Large (3+) (Negative); Urine Ketones Negative (Negative); Urine Protein 100 (2+) mg/dL (Neg-Trace)
[2024-05-04 13:30] LABS: Bacteria Urine 2+ (None Seen); Hyaline Casts Urine 0-2 /LPF (0-2); RBC Urine >20 /HPF (0-2); UACC Culture Trigger YES; WBC Urine >50 /HPF (0-5)
[2024-05-04 13:48] LABS: Alanine Aminotransferase 31 U/L (0-31); Albumin Level 4.5 g/dL (3.5-5.0); Alkaline Phosphatase 101 U/L (39-117); Anion Gap 10 (12-20); Aspartate Amino Transferase 25 U/L (5-31); Bilirubin Total 0.5 mg/dL (0.0-1.0); Blood Urea Nitrogen 12 mg/dL (9-16); Calcium 9.6 mg/dL (8.4-10.2); Carbon Dioxide 33 mmol/L (22-29); Chloride 102 mmol/L (96-108); Creatinine Clr Calc Pharmacy 71.4; Estimated Glomerular Filt Rate > 60; Glucose Random 107 mg/dL (60-115); HCG Quantitative 6 mIU/mL; Potassium 3.5 mmol/L (3.3-5.1); Sodium 141 mmol/L (135-145); Total Protein 8.1 g/dL (6.5-8.0)
[2024-05-04 14:37] VITALS: BP 153/83; PULSE 81; RESP 19; TEMP 36.6; O2SAT 99
== END 2024-05-04 14:38 | disposition home or self-care (01) ==
PROVIDERS: Registered Nurse Emergency; Emergency Provider Emergency Medicine; PCP Internal Medicine
DX: N39.0 Urinary tract infection, site not specified (principal); R89.1 Abnormal level of hormones in specimens from other organs, systems and tissues; E78.5 Hyperlipidemia, unspecified; I10 Essential (primary) hypertension; Z79.899 Other long term (current) drug therapy
CPT/HCPCS: 36415; 80053; 81001; 84702; 85025; 87086; 87088; 87186; 99282; 99283

== ENCOUNTER 2024-05-18 13:10 | Outpatient (AMB) | payer OTHER, SELFPAY ==
[2024-05-18 13:34] VITALS: BP 136/102; BMI 24.4
--- NOTE | 2024-05-18 13:34 | A.OFFPC_ITS ---
Vital Signs 05/18/24 13:34 Height 5 ft 4 in Weight 142 lb BMI 24.4 BP 136/102 H Blood Pressure Location Lt brachial Position Sitting Intake Visit Reasons: [facility] [place] ED F/U:elevation in your blood hCG level Critical Care Specialist Required: No Accompanied by: Self / Same As Patient Allergies Penicillins [PENICILLINS] Allergy (Intermediate, Verified 05/18/24 14:04) RASH,ITCHY Medication List - Last Reconciled 05/18/24 by Patricia Santos MD hydrochlorothiazide 12.5 mg PO DAILY 90 days Tobacco use date assessed: 07/13/23 Dental Screening Dental Screen Date: 05/18/24 Did you have a dental visit in the last 12 months?: Yes Did you have a dental problem in the last 6 months where you did not have access to dental care?: No Was dental information given to patient?: Patient has dentist HPI HPI Comments History of Present Illness Details The patient is a 48-year-old female presenting with elevated blood pressure and concerns related to a urinary tract infection. Approximately a month ago, the patient began monitoring her blood pressure, noting it was consistently elevated. Most recently, it was recorded at 136/102 mmHg. She has been on hydrochlorothiazide 12.5 mg for hypertension but reports an increase in dosage to 25 mg is needed due to persistent high readings. Regarding her urinary symptoms, she visited the emergency department on 05/04 after experiencing severe nocturnal urological discomfort, marked by frequent urination and significant pain, alongside hematuria. On evaluation, laboratory results revealed leukocytosis with white blood cells at 11.6 k/uL and urinalysis showed cloudiness, proteinuria, hematuria, and positive nitrites. E. coli was isolated, and cefuroxime was initiated, yielding some improvement; however, mild discomfort persists post-therapy. Additionally, there is a note of elevated Beta-HCG levels, recorded at 6 mIU/mL, which is above the normal range for non- women. She complains of new daily persistent headaches and had an MRI of the brain done 2020 showing pituitary micro adenoma. Denies any galactorrhea. Complains of blurry vision. Will order another MRI of the brain and labs. [facility] Medical History (Updated 05/18/24 @ 14:18 by Patricia Santos MD) Chronic GERD Dyslipidemia Chest pain Hx of migraine headaches Abdominal pain HTN (hypertension) Iron deficiency anemia Surgical History History of esophagogastroduodenoscopy (EGD) H/O colonoscopy History of endometrial ablation History of loop electrical excision procedure (LEEP) H/O left breast biopsy Family History Maternal Grandmother Tracheal cancer Mother Hypertension Arthritis Father Hypertension Pancreatic cancer Social History Household Members: Spouse and Children Household Members Other:: 2 kids Housing: House Alcohol intake: never Patient Tobacco Use Status: Never used Tobacco e-Cigarette/Vaping Use: Never Used Second Hand Smoke Exposure: No service: No Current occupational status: unemployed Cognitive needs: No Hearing needs: No Vision needs: Yes Female Reproductive History Menstrual Age of Menarche: 14 Date of menopause: 05/22/21 Questionnaire Thrive Questionnaire Date Thrive assessed: 07/13/23 JAMES-7 AMB Questionnaire JAMES-7 Date JAMES - 7 assessed: 07/13/23 Source: Developed by Drs. Mir Fuller, Jannet Engel, Efrain Reddy and colleagues, with an educational caty from [employer]. Review of Systems Const All systems reviewed & are unremarkable except as noted in HPI and below Card Denies chest pain at rest, Denies chest pain with activity, Denies edema, Denies irregular heart rhythm, Denies claudication, Denies dyspnea, Denies dyspnea on exertion, Denies orthopnea, Denies paroxysmal nocturnal dyspnea and Denies slow heart rate Resp Denies cough, Denies dyspnea and Denies dyspnea on exertion GI Denies abdominal pain, Denies change in bowel habits, Denies excessive flatus, Denies nausea and Denies vomiting Denies urinary incontinence, Denies urinary hesitancy and Denies urinary urgency Musc Denies abnormal gait, Denies atrophy, Denies deformity and Denies limited range of motion Skin/Breast Denies bleeding lesions, Denies changing lesions and Denies rash Neuro Denies abnormal gait, Denies behavioral changes and Denies lack of coordination Psych Denies behavioral changes Physical exam (Primary Care) Vital Signs: Last Vital Signs BP 136/102 H 05/18/24 13:34 BMI result Body Mass Index 24.4 Tobacco/Smoking Status: Tobacco use Status Tobacco use date assessed 07/13/23 05/18/24 13:38 Patient Tobacco Use Status Never used Tobacco 05/18/24 13:38 e-Cigarette/Vaping Use Never Used 05/18/24 13:38 Thrive Assessment: Date of Thrive Assessment Date Thrive assessed 07/13/23 05/18/24 13:38 Resp Effort & Inspection: normal respiratory effort Auscultation: clear to auscultation bilaterally Cardio Jugular venous distension: no JVD Rate: regular rate Rhythm: regular rhythm Heart sounds: S1 normal heart sound present and S2 normal heart sound present Neuro General: no focal motor deficits Extrem General: Yes full ROM Office Procedures Flu Questionnaire Does the patient have a severe egg allergy?: No Immunizations Fluarix Triv [id number] (PF) 45 mcg (15 mcg x 3)/0.5 mL IM syringe Performing Provider: Patricia Santos MD Performing Location[facility] [place] [facility] Documented (not given) by: RIYA Neves on 05/18/24 13:40 Reason Not Given: Patient Refused Coding Level of Care Code Est Pt Level 4 (96139) Complex EM visit Add On G2211 Diagnoses New daily persistent headache G44.52 Elevated serum hCG in female, not R79.89 Primary hypertension I10 Hypertension type: primary hypertension Pituitary microadenoma D35.2 Time Spent (min) 22 Assessment & Plan Assessment & Plan (1) New daily persistent headache: Code(s): G44.52 - New daily persistent headache (NDPH) Category: Medical (2) Elevated serum hCG in female, not : Code(s): R79.89 - Other specified abnormal findings of blood chemistry Category: Medical (3) HTN (hypertension): Code(s): I10 - Essential (primary) hypertension Category: Medical Qualifiers: Hypertension type: primary hypertension Qualified Code(s): I10 - Essential (primary) hypertension (4) Pituitary microadenoma: Code(s): D35.2 - Benign neoplasm of pituitary gland Category: Medical Plan 1. Essential Hypertension: Increase hydrochlorothiazide dosage to 25 mg. Monitor blood pressure regularly and reassess in three weeks. 2. Urinary Tract Infection: Continue monitoring for residual symptoms. Consider follow-up urinalysis if symptoms persist. 3. Elevated Beta-HCG: Discuss results with a gynecological specialist for further evaluation and monitoring. Patient was informed and verbally consented to the use of an ambient scribe for clinic note documentation during this visit. I discussed with the patient the nature of her elevated blood pressure, confirming the need to increase her hydrochlorothiazide dosage to 25 mg. We reviewed the urinary tract infection treatment course with cefuroxime, which initially proved effective. However, due to lingering post-treatment discomfort, further evaluation might be necessary if symptoms persist. We also addressed the elevated Beta-HCG levels and recommended consultation with a rn travel for further investigation into potential implications. The importance of follow- up appointments and regular monitoring was emphasized to manage her healthcare needs effectively. Orders: Orders Influenza [id number] Immunization Today Z23 - Encounter for immunization Prolactin Today D35.2 - Benign neoplasm of pituitary gland MR head/brain wo con Today D35.2 - Benign neoplasm of pituitary gland, G44.52 - New daily persistent headache (NDPH) UA CC w/rflx Micro + Cult 6 Weeks R30.0 - Dysuria Medications: New sulfamethoxazole-trimethoprim 800-160 mg (Bactrim DS) 1 tab PO BID 6 tabs 0RF 3 days hydrochlorothiazide 25 mg PO DAILY 90 tabs 0RF 90 days Discontinued hydrochlorothiazide Discontinued Reason: Patient Completed Course 12.5 mg PO DAILY 90 days 90 tabs 1RF I10 - Essential (primary) hypertension Patient Instructions: - Take hydrochlorothiazide 25 mg daily, as prescribed. - Monitor blood pressure daily and keep a log. - Follow up in three weeks with the nurse navigator to evaluate blood pressure management. - Contact the office if urinary symptoms worsen or do not resolve. - Schedule a consultation with a gynecological specialist regarding the elevated Beta-HCG. - Seek immediate medical attention for any new or severe symptoms.
== END 2024-05-18 14:26 | disposition home or self-care (01) ==
PROVIDERS: PCP Internal Medicine; Visit Provider Internal Medicine
DX: G44.52 New daily persistent headache (NDPH) (principal); R79.89 Other specified abnormal findings of blood chemistry; I10 Essential (primary) hypertension; D35.2 Benign neoplasm of pituitary gland; Z23 Encounter for immunization

== ENCOUNTER → 2024-05-18 13:10 | Outpatient (BNVA) | payer OTHER, SELFPAY | PROVIDERS: PCP Internal Medicine; Visit Provider Internal Medicine | DX: G44.52 New daily persistent headache (NDPH) (principal); R79.89 Other specified abnormal findings of blood chemistry; I10 Essential (primary) hypertension; D35.2 Benign neoplasm of pituitary gland | CPT/HCPCS: 90471; 99212 ==

== ENCOUNTER 2024-05-24 08:03 | Outpatient (REF) | payer OTHER, SELFPAY ==
[2024-05-24 09:02] LABS: Potassium 3.7 mmol/L (3.3-5.1)
[2024-05-24 09:12] LABS: Appearance Urine Clear; Color Urine Yellow; Glucose Urine UA Negative (Negative); Leukocyte Esterase Urine Negative (Negative); Nitrite Urine Negative (Negative); PH 5.5 (5.0-9.0); Urine Blood Negative (Negative); Urine Ketones Negative (Negative); Urine Protein Negative (Neg-Trace)
[2024-05-25 18:23] LABS: Prolactin 7.3 ng/mL
== END 2024-05-24 08:04 | disposition home or self-care (01) ==
LOC: HO.LAB 08:03
PROVIDERS: PCP Internal Medicine; Visit Provider Internal Medicine
DX: E87.6 Hypokalemia (principal); R30.0 Dysuria; D35.2 Benign neoplasm of pituitary gland
CPT/HCPCS: 36415; 81003; 84132; 84146

== ENCOUNTER 2024-05-26 15:29 | Outpatient (REF) | payer OTHER, SELFPAY ==
--- NOTE | ~2024-05-26 | MR_ITS ---
EXAMINATION: MR BRAIN WITHOUT AND WITH CONTRAST CLINICAL INFORMATION: Daily persistent headache. COMPARISON: Brain MRI from 01/22/2021. TECHNIQUE: MRI of the brain was obtained using pituitary protocol without and following the administration of 9 mL of Gadavist intravenous contrast. FINDINGS: No focal restricted diffusion is demonstrated to suggest acute or subacute cerebral ischemia. No evidence of acute or chronic hemorrhagic products on heme-sensitive imaging. Few nonspecific scattered foci of T2 FLAIR hyperintensity within the bifrontal lobes. No additional parenchymal signal abnormalities. The ventricles are normal in morphology and size. No abnormal mass effect. No midline shift. Normal morphology and signal intensity of the pituitary gland on precontrast imaging. Normal posterior pituitary bright spot. Mild interval increase in size of a 0.3 cm hypoattenuating nodule within the upper right medial aspect of the pituitary gland (previously 0.2 cm in 2020). No additional hyperenhancing or hypoenhancing lesions demonstrated on post contrast imaging. The pituitary infundibulum is normal in morphology and remains midline in position. The suprasellar cistern remains patent. No abnormal mass effect on the optic chiasm. Normal positioning of the cerebellar tonsils. Normal arterial and venous vascular flow voids are present. No abnormal contrast enhancement. Normal, homogeneous marrow signal. Mild mucosal thickening of the paranasal sinuses. Moderate rightward nasal septal deviation. No signal abnormalities within the mastoids. MR/MR head/brain wo/w con IMPRESSION: 1. Mild interval increase in size of a 0.3 cm hypoattenuating nodule within the right medial aspect of the pituitary gland. This may represent a microadenoma in the appropriate clinical setting. 2. No acute intracranial abnormalities. No additional abnormal intracranial enhancement. 3. Minimal nonspecific white matter changes. Electronically signed by: Sam Bowman DO 05/26/2024 06:46 PM [facility]
[2024-05-26] MEDS: gadobutroL 7.5 ML VIAL IVPUSH (17:44)
== END 2024-05-26 15:30 | disposition home or self-care (01) ==
LOC: HO.MRI 15:29
PROVIDERS: PCP Internal Medicine; Visit Provider Internal Medicine
DX: G44.52 New daily persistent headache (NDPH) (principal); D35.2 Benign neoplasm of pituitary gland
CPT/HCPCS: 70553; A9585

== ENCOUNTER → 2024-06-02 11:48 | Outpatient (BNVA) | payer OTHER, SELFPAY | PROVIDERS: PCP Internal Medicine ==

== ENCOUNTER 2024-06-23 13:36 | Outpatient (AMB) | payer OTHER, SELFPAY ==
--- NOTE | 2024-06-23 13:40 | MHC.OFFVIS ---
Vital Signs 06/23/24 13:44 Height 5 ft 4 in Weight 146 lb 2.664 oz BMI 25.1 BP 112/82 Blood Pressure Location Rt brachial Position Sitting Pulse 86 Pulse Source Pulse Oximeter Intake Visit Reasons: Benign neoplasm of pituitary gland Intake Note: New patient present today for Benign neoplasm of pituitary gland. Applied Marine Physics Professor Required: Yes Applied Marine Physics Professor Language: Process Designer Services: Applied Marine Physics Professor Present Applied Marine Physics Professor Name: Rosa Information Interpreted: non-clinical & clinical Accompanied by: Spouse Allergies Penicillins [PENICILLINS] Allergy (Intermediate, Verified 06/23/24 14:01) RASH,ITCHY HPI Comments Details: 48 years old female here today for pituitary microadenoma Here today with Diagnosed with pituitary adenoma in 2012 in [place] . Was seeing neurology in [place]. Never saw endocrine for this before Most recent MRI May 2024 shows mild increase in size to 0.3 cm right medial aspect of the pituitary from 0.2 cm in 2020 whihc was same in 2019. Moved to the [facility] from [place] in 2018. Reports blurry and double vision, always in the morning, for the past year. Hasnt seen an eye doctor for at least 2 years Reports chronic headaches , not worsening No nipple discharge Does have tenderness in nipples No decrease in sense of smell No change in ring size or shoe size No weight changes Feeling hotter than usual Post menopausal 2 pregnancies , no difficult getting . No misscarriages Periods were regular Reports intermittent lightheadedenss, reports intermittent nausea No easy bruising, no proximal muscle weakness. Physical exam General: sitting comfortably in no acute distress HEENT: normocephalic/atraumatic, EOM intact, moist oral mucosa, gross visual suárez intact Neck: supple, symmetrical, no thyromegaly , no dorsocervical or supraclavicular fat pads Cardiac: normal heart sounds Pulm: normal breath sounds B/L, no added breath sounds Abd: not distended, no tenderness Extremities: no edema, no signs of myxedema Neuro: AAO x3, Speech: normal, no facial droop, moving all 4 extremities Laboratory Tests 08/27/18 11/08/20 05/28/22 10:40 11:30 15:53 TSH 1.32 1.35 Prolactin 15.3 6.0 FSH 20.4 05/24/24 08:31 TSH Prolactin 7.3 FSH MR BRAIN WITHOUT AND WITH CONTRAST 05/26/24 CLINICAL INFORMATION: Daily persistent headache. COMPARISON: Brain MRI from 01/22/2021. TECHNIQUE: MRI of the brain was obtained using pituitary protocol without and following the administration of 9 mL of Gadavist intravenous contrast. FINDINGS: No focal restricted diffusion is demonstrated to suggest acute or subacute cerebral ischemia. No evidence of acute or chronic hemorrhagic products on heme-sensitive imaging. Few nonspecific scattered foci of T2 FLAIR hyperintensity within the bifrontal lobes. No additional parenchymal signal abnormalities. The ventricles are normal in morphology and size. No abnormal mass effect. No midline shift. Normal morphology and signal intensity of the pituitary gland on precontrast imaging. Normal posterior pituitary bright spot. Mild interval increase in size of a 0.3 cm hypoattenuating nodule within the upper right medial aspect of the pituitary gland (previously 0.2 cm in 2020). No additional hyperenhancing or hypoenhancing lesions demonstrated on post contrast imaging. The pituitary infundibulum is normal in morphology and remains midline in position. The suprasellar cistern remains patent. No abnormal mass effect on the optic chiasm. Normal positioning of the cerebellar tonsils. Normal arterial and venous vascular flow voids are present. No abnormal contrast enhancement. Normal, homogeneous marrow signal. Mild mucosal thickening of the paranasal sinuses. Moderate rightward nasal septal deviation. No signal abnormalities within the mastoids. MR/MR head/brain wo/w con IMPRESSION: 1. Mild interval increase in size of a 0.3 cm hypoattenuating nodule within the right medial aspect of the pituitary gland. This may represent a microadenoma in the appropriate clinical setting. 2. No acute intracranial abnormalities. No additional abnormal intracranial enhancement. 3. Minimal nonspecific white matter changes. Electronically signed by: Sam Bowman DO 05/26/2024 06:46 PM [facility] MR BRAIN WITHOUT AND WITH CONTRAST 01/22/21 CLINICAL INFORMATION: Benign neoplasm of the pituitary gland. COMPARISON: Brain MRI 09/03/2018. TECHNIQUE: Multiplanar, multisequence MRI of the brain was obtained before and after the intravenous administration of 3.5 mL Gadavist. FINDINGS: There is a stable-appearing 2 mm focus of hypoenhancement within the upper right paramedian aspect of the anterior pituitary lobe, most likely a pituitary microadenoma that is unchanged. Infundibulum is midline. No mass effect on the optic nerve apparatus. The cavernous sinuses are symmetric and normal. There is no hydrocephalus, extra-axial surface collection, or herniation. The major flow voids at the skull base are preserved. There is no acute infarct on diffusion-weighted imaging. There is no intracranial hemorrhage on the gradient recalled echo acquisition. The cerebellar tonsils are normally positioned. The cerebellum and brainstem are normal. The craniocervical junction is normal. Osseous marrow signal intensity is homogenous. The visualized soft tissues are unremarkable. MR/MR head/brain wo/w con IMPRESSION: Stable-appearing 2 mm focus of hypoenhancement within the upper right paramedian aspect of the anterior pituitary lobe, most likely a pituitary microadenoma. There is no sellar/suprasellar mass effect. [facility] Medical History Chronic GERD Dyslipidemia Chest pain Hx of migraine headaches Abdominal pain HTN (hypertension) Iron deficiency anemia Surgical History History of esophagogastroduodenoscopy (EGD) H/O colonoscopy History of endometrial ablation History of loop electrical excision procedure (LEEP) H/O left breast biopsy Family History Maternal Grandmother Tracheal cancer Mother Hypertension Arthritis Father Hypertension Pancreatic cancer Social History Household Members: Spouse and Children Household Members Other:: 2 kids Housing: House Alcohol intake: never Patient Tobacco Use Status: Never used Tobacco e-Cigarette/Vaping Use: Never Used Second Hand Smoke Exposure: No service: No Current occupational status: unemployed Cognitive needs: No Hearing needs: No Vision needs: Yes Female Reproductive History Menstrual Age of Menarche: 14 Date of menopause: 05/22/21 Physical Exam Vital Signs: Last Vital Signs Pulse 86 06/23/24 13:44 BP 112/82 06/23/24 13:44 BMI result Body Mass Index 25.1 Assessment & Plan Assessment & Plan (1) Pituitary microadenoma: Code(s): D35.2 - Benign neoplasm of pituitary gland Category: Medical Plan: 48-year-old female here today for initial evaluation of pituitary microadenoma. She has had this at least since 2013 diagnosed in [place], we have records of her scan from 2019 which showed that this used to be 2 mm in size, however most recently on MRI from 2023 is 3 mm. Mild increase, likely not significant. From [id number] it was stable at 2 mm. Grossly her visual suárez are intact. However she is reporting some blurry vision that has been going on recently so I have asked her to see an funeral director/embalmer/owner. Ophthalmology referral placed. The natural history of pituitary micro adenoma as is that the usually remain stable in size with minimal s chances of growth. Endocrine society guidelines recommend that we do tests these for both hypo secretion and hyper secretion. Plan: -ordered pituitary panel -referral for Ophthalmology placed -follow up in 3 weeks to discuss results (2) Blurry vision: Code(s): H53.8 - Other visual disturbances Category: Medical Plan: See above Plan I spent 45 minutes in reviewing the record, seeing the patient and documenting in the medical record. Orders: Orders Estradiol Ultra Sensitive Today D35.2 - Benign neoplasm of pituitary gland Free T4 (Free Thyroxine) Today D35.2 - Benign neoplasm of pituitary gland Prolactin Today D35.2 - Benign neoplasm of pituitary gland Cortisol Random Today D35.2 - Benign neoplasm of pituitary gland IGF-1 (Somatomedin C) Today D35.2 - Benign neoplasm of pituitary gland Lutenizing Hormone Today D35.2 - Benign neoplasm of pituitary gland Cortisol, Free 24Hr Urine Today D35.2 - Benign neoplasm of pituitary gland Creatinine, 24 Hr Group Today D35.2 - Benign neoplasm of pituitary gland Thyroid Stimulating Hormone Today D35.2 - Benign neoplasm of pituitary gland Alpha Subunit Today D35.2 - Benign neoplasm of pituitary gland Adrenocorticotropic Hormone Today D35.2 - Benign neoplasm of pituitary gland Basic Metabolic Panel Today D35.2 - Benign neoplasm of pituitary gland Follicle Stimulating Hormone Today D35.2 - Benign neoplasm of pituitary gland Human Growth Hormone Today D35.2 - Benign neoplasm of pituitary gland Referrals Ophthalmology Referral D35.2 - Benign neoplasm of pituitary gland, H53.8 - Other visual disturbances Patient Instructions: Do fasting 8 AM blood work Do 24 hour urine collection 24 hr urine collection instructions You have been asked to collect your urine for 24 hours to assess for cortisol excretion. You must choose a 24 hour period of time when you will be home. The morning of the first day, DISCARD the FIRST morning void and then note the time. You will collect every single void from then on for 24 hours. For example, if you wake up at 6am and urinate, flush down that void. You will then collect every drop of urine all day and all night through 6am the following day. You will urinate one last time at 6am for the collection. The jug of urine must be kept in the refrigerator until you bring it to the lab. Hacer an?lisis de nohemy en ayunas a las 8 a.m. Hacer recolecci?n de orina de 24 horas Instrucciones para la recolecci?n de orina de 24 horas. Se le taylor pedido que recolecte orina darrian 24 horas para evaluar la excreci?n de cortisol . Debe elegir un per?odo de 24 horas en el que estar? en casa. La ma?patricia del primer d?a, DESCARTE el PRIMER vac?o de la ma?patricia y luego anote la hora. A partir de shana momento, recolectar?s todos los vac?os darrian 24 horas. Por ejemplo, si te despiertas a las 6 de la ma?patricia y orinas, cornelio shana vac?o. Luego recolectar? cada gota de orina darrian todo el d?a y toda la noche hasta las 6 a.m. del d?a siguiente. Orinar?s por ?ltima vez a las 6 a. m. para la recolecci?n. La jarra de orina debe guardarse en el refrigerador hasta que la lleve al laboratorio. Coding Level of Care Code New Pt Level 4 (00155) Diagnoses Pituitary microadenoma D35.2 Blurry vision H53.8 Time Spent (min) 45
[2024-06-23 13:44] VITALS: BP 112/82; PULSE 86; BMI 25.1
== END 2024-06-23 14:44 | disposition home or self-care (01) ==
PROVIDERS: PCP Internal Medicine; Visit Provider Student in an Organized Health Care Education/Training Program
DX: D35.2 Benign neoplasm of pituitary gland (principal); H53.8 Other visual disturbances
CPT/HCPCS: 99204

== ENCOUNTER → 2024-06-23 13:36 | Outpatient (BNVA) | payer OTHER, SELFPAY | PROVIDERS: PCP Internal Medicine; Visit Provider Student in an Organized Health Care Education/Training Program | DX: D35.2 Benign neoplasm of pituitary gland (principal); H53.8 Other visual disturbances | CPT/HCPCS: 99202 ==

== ENCOUNTER 2024-06-24 08:36 | Outpatient (REF) | payer OTHER, SELFPAY ==
[2024-06-24 11:11] LABS: Appearance Urine Clear; Color Urine Yellow; Glucose Urine UA Negative (Negative); Leukocyte Esterase Urine Negative (Negative); Nitrite Urine Negative (Negative); PH 6.5 (5.0-9.0); Specific Gravity - Urine 1.015 (1.005-1.025); Urine Blood Negative (Negative); Urine Ketones Negative (Negative); Urine Protein Negative (Neg-Trace)
[2024-06-24 11:42] LABS: Anion Gap 10 (12-20); Blood Urea Nitrogen 10 mg/dL (9-16); Calcium 9.8 mg/dL (8.4-10.2); Carbon Dioxide 31 mmol/L (22-29); Chloride 104 mmol/L (96-108); Estimated Glomerular Filt Rate > 60; Glucose Random 96 mg/dL (60-115); Potassium 3.6 mmol/L (3.3-5.1); Sodium 141 mmol/L (135-145)
[2024-06-24 12:01] LABS: Thyroid Stimulating Hormone 1.88 uIU/mL (0.32-4.0)
[2024-06-24 13:30] LABS: Cortisol Random 10.5 ug/dL
[2024-06-26 02:58] LABS: Follicle Stimulating Hormone 104.6 mIU/mL; Lutenizing Hormone 64.3 mIU/mL; Prolactin 5.4 ng/mL
[2024-06-28 21:47] LABS: Adrenocorticotropic Hormone 9 pg/mL (6-50)
[2024-06-29 00:18] LABS: Human Growth Hormone 0.2 ng/mL (< OR = 7.1)
[2024-06-30 14:27] LABS: IGF-1 (Somatomedin C) 195 ng/mL (52-328); IGF-1 Z Score (Female) 0.7 SD (-2.0 - +2.0)
[2024-06-30 23:13] LABS: Estradiol Ultra Sensitive 6 pg/mL
== END 2024-06-24 08:37 | disposition home or self-care (01) ==
LOC: HO.LAB 08:36
PROVIDERS: Absent Provider Internal Medicine; PCP Internal Medicine; Visit Provider Student in an Organized Health Care Education/Training Program
DX: D35.2 Benign neoplasm of pituitary gland (principal); R30.0 Dysuria
CPT/HCPCS: 36415; 80048; 81003; 82024; 82533; 82670; 83001; 83002; 83003; 83519; 84146; 84305; 84439; 84443

== ENCOUNTER 2024-07-14 12:38 | Outpatient (REF) | payer OTHER, SELFPAY ==
--- OUTSIDE RECORDS SUMMARY | 2024-07-14 16:27 | XMS_ITS | Clinical Summary ---
Author Organization [address] [facility] Address [address] [place] [address] Phone Care Team Providers Care Military Lawyer Name Role Phone Patricia Santos MD Primary Care Provider [phone] Social History Tobacco Use Types Packs/Day Years Used Date Smoking Tobacco: Never Assessed Sex and Gender Information Value Date Recorded Sex Assigned at Not on file Gender Identity Not on file Sexual Orientation Not on file Job Start Date Occupation Industry Not on file Not on file Not on file Plan of Treatment Upcoming Encounters Date Type Department Care Team ([facility] st Contact Info) Description 07/22/2024 10:00 AM EST Office Visit [facility] [address] [facility] [address] [place] [address] [phone] Melisa Campbell MD [address] [place] [address] Health Maintenance Due Date Last Done Comments Breast Cancer Screening 1977 DTaP,Tdap,and Td Vaccines (1 - Tdap) 1996 Hepatitis B Vaccines (1 of 3 - 19+ 3-dose series) 1996 Cervical Cancer Screening: P ap Smear 1998 COVID-19 Vaccine ( - 2023-2 5 season) 2024 Influenza Vaccine (#1) 2024 Colorectal Cancer Screening: Colonoscopy 06/09/2024 Depression Screening 06/09/2024 HIV Screening 06/09/2024 Hepatitis C Screening 06/09/2024 Social Influencers of Health Screening 06/09/2024 HIB Vaccines Aged Out No longer eligi ble based on patient's age to complete this topic HPV Vaccines Aged Out No longer eligi ble based on patient's age to complete this topic Hepatitis A Vaccines Aged Out No long er eligible based on patient's age to complete this topic IPV Vaccines Aged Out No longer eligi ble based on patient's age to complete this topic MMR Vaccines Aged Out No longer eligi ble based on patient's age to complete this topic Meningococcal ACWY Vaccine Aged Out N o longer eligible based on patient's age to complete this topic Pneumococcal Vaccine: Pediat rics (0 to 5 Years) and At-Risk Patients (6 to 64 Years) Aged Out No longer eligible b ased on patient's age to complete this topic RSV Immunization Patients Un brice 20 months Aged Out No longer eligible b ased on patient's age to complete this topic Varicella Vaccines Aged Out No longer eligible based on patient's age to complete this topic Care Teams Military Lawyer Relationship Specialty Start Date End Date Patricia Santos MD [address] [place] [address] , [address] [facility] D/B/A: [facility] FERNANDO Engel PCP - General Internal Medicine 06/09/24
== END 2024-07-14 12:39 | disposition home or self-care (01) ==
LOC: HO.MAMMO 12:38
PROVIDERS: PCP Internal Medicine; Visit Provider Obstetrics & Gynecology
DX: Z12.31 Encounter for screening mammogram for malignant neoplasm of breast (principal)
CPT/HCPCS: 77063; 77067; 99212

== ENCOUNTER → 2024-07-14 12:45 | Outpatient (BNV) | payer OTHER, SELFPAY | PROVIDERS: PCP Internal Medicine; Visit Provider Internal Medicine | DX: Z12.31 Encounter for screening mammogram for malignant neoplasm of breast (principal) | CPT/HCPCS: 77063; 77067 ==

== ENCOUNTER 2024-07-14 13:33 | Outpatient (AMB) | payer OTHER, SELFPAY ==
[2024-07-14 13:33] VITALS: BP 122/88; PULSE 97; BMI 25.5
--- NOTE | 2024-07-14 13:33 | A.OFFVIS_ITS ---
Vital Signs 3 07/14/24 13:33 Height 5 ft 4 in Weight 148 lb 5.938 oz BMI 25.5 BP 122/88 Blood Pressure Location Rt brachial Position Sitting Pulse 97 Pulse Source Pulse Oximeter Intake Visit Reasons: Benign neoplasm of pituitary gland Intake Note: Patient present today for Benign neoplasm of pituitary gland. Plasterer Apprentice Required: Yes Plasterer Apprentice Language: Cigarette Packer Services: Plasterer Apprentice Present Plasterer Apprentice Name: Layla [id number] Information Interpreted: non-clinical & clinical Accompanied by: Spouse Allergies Penicillins [PENICILLINS] Allergy (Intermediate, Verified 07/14/24 13:38) RASH,ITCHY HPI Comments Details: 48 years old female here today for follow up of pituitary microadenoma Here today with HPI from prior visit Diagnosed with pituitary adenoma in 2013 in [place] . Was seeing neurology in [place]. Never saw endocrine for this before Most recent MRI May 2024 shows mild increase in size to 0.3 cm right medial aspect of the pituitary from 0.2 cm in 2020 [facility] was same in 2019. Moved to the [facility] from [place] in 2018. Reports blurry and double vision, always in the morning, for the past year. Hasnt seen an eye doctor for at least 2 years Reports chronic headaches , not worsening No nipple discharge Does have tenderness in nipples No decrease in sense of smell No change in ring size or shoe size No weight changes Feeling hotter than usual Post menopausal 2 pregnancies , no difficult getting . No misscarriages Periods were regular Reports intermittent lightheadedenss, reports intermittent nausea No easy bruising, no proximal muscle weakness. Interval history labs done 06/24/2024 showed normal prolactin, thyroid function, LH, FSH and estradiol within postmenopausal range, normal IGF-1, normal baseline cortisol levels. 24 hour urine cortisol 06/27/2024 also within normal range. Physical exam General: sitting comfortably in no acute distress HEENT: normocephalic/atraumatic, Neck: supple Cardiac: normal heart sounds Pulm: normal breath sounds B/L, no added breath sounds Abd: not distended, no tenderness Extremities: no edema, no signs of myxedema Neuro: AAO x3, Speech: normal, no facial droop, moving all 4 extremities Laboratory Tests 08/27/18 11/08/20 05/28/22 10:40 11:30 15:53 TSH 1.32 1.35 Prolactin 15.3 6.0 FSH 20.4 05/24/24 08:31 TSH Prolactin 7.3 FSH Laboratory Tests 05/24/24 06/24/24 06/27/24 08:31 09:18 08:00 Alpha Subunit Marker 0.9 TSH 1.88 Free T4 1.00 Estradiol Ultra LCMSMS 6 FSH 104.6 Luteinizing Hormone 64.3 Prolactin 7.3 5.4 Human Growth Hormone 0.2 Somatomedin-C 195 Somato-C Z-Score Female 0.7 Random Cortisol 10.5 ACTH 9 Urine Total Volume 1575 Ur 24 Hour Volume 1575 Ur Creatinine mg/dL 77.97 Ur Creatinine 24 Hour 1.29 Ur Free Cortisol 24 Hr 14.9 MR BRAIN WITHOUT AND WITH CONTRAST 05/26/24 CLINICAL INFORMATION: Daily persistent headache. COMPARISON: Brain MRI from 01/22/2021. TECHNIQUE: MRI of the brain was obtained using pituitary protocol without and following the administration of 9 mL of Gadavist intravenous contrast. FINDINGS: No focal restricted diffusion is demonstrated to suggest acute or subacute cerebral ischemia. No evidence of acute or chronic hemorrhagic products on heme-sensitive imaging. Few nonspecific scattered foci of T2 FLAIR hyperintensity within the bifrontal lobes. No additional parenchymal signal abnormalities. The ventricles are normal in morphology and size. No abnormal mass effect. No midline shift. Normal morphology and signal intensity of the pituitary gland on precontrast imaging. Normal posterior pituitary bright spot. Mild interval increase in size of a 0.3 cm hypoattenuating nodule within the upper right medial aspect of the pituitary gland (previously 0.2 cm in 2020). No additional hyperenhancing or hypoenhancing lesions demonstrated on post contrast imaging. The pituitary infundibulum is normal in morphology and remains midline in position. The suprasellar cistern remains patent. No abnormal mass effect on the optic chiasm. Normal positioning of the cerebellar tonsils. Normal arterial and venous vascular flow voids are present. No abnormal contrast enhancement. Normal, homogeneous marrow signal. Mild mucosal thickening of the paranasal sinuses. Moderate rightward nasal septal deviation. No signal abnormalities within the mastoids. MR/MR head/brain wo/w con IMPRESSION: 1. Mild interval increase in size of a 0.3 cm hypoattenuating nodule within the right medial aspect of the pituitary gland. This may represent a microadenoma in the appropriate clinical setting. 2. No acute intracranial abnormalities. No additional abnormal intracranial enhancement. 3. Minimal nonspecific white matter changes. Electronically signed by: Sam Bowman DO 05/26/2024 06:46 PM [facility] MR BRAIN WITHOUT AND WITH CONTRAST 01/22/21 CLINICAL INFORMATION: Benign neoplasm of the pituitary gland. COMPARISON: Brain MRI 09/03/2018. TECHNIQUE: Multiplanar, multisequence MRI of the brain was obtained before and after the intravenous administration of 3.5 mL Gadavist. FINDINGS: There is a stable-appearing 2 mm focus of hypoenhancement within the upper right paramedian aspect of the anterior pituitary lobe, most likely a pituitary microadenoma that is unchanged. Infundibulum is midline. No mass effect on the optic nerve apparatus. The cavernous sinuses are symmetric and normal. There is no hydrocephalus, extra-axial surface collection, or herniation. The major flow voids at the skull base are preserved. There is no acute infarct on diffusion-weighted imaging. There is no intracranial hemorrhage on the gradient recalled echo acquisition. The cerebellar tonsils are normally positioned. The cerebellum and brainstem are normal. The craniocervical junction is normal. Osseous marrow signal intensity is homogenous. The visualized soft tissues are unremarkable. MR/MR head/brain wo/w con IMPRESSION: Stable-appearing 2 mm focus of hypoenhancement within the upper right paramedian aspect of the anterior pituitary lobe, most likely a pituitary microadenoma. There is no sellar/suprasellar mass effect. [facility] Medical History (Updated 07/14/24 @ 11:55 by Patricia Santos MD) Pituitary adenoma Blurry vision Chronic GERD Dyslipidemia Chest pain Hx of migraine headaches Abdominal pain HTN (hypertension) Iron deficiency anemia Surgical History History of esophagogastroduodenoscopy (EGD) H/O colonoscopy History of endometrial ablation History of loop electrical excision procedure (LEEP) H/O left breast biopsy Family History (Updated 07/14/24 @ 09:56 by Patricia Santos MD) Maternal Grandmother Tracheal cancer Mother Hypertension Arthritis Hypothyroidism Father Hypertension Pancreatic cancer Social History Household Members: Spouse and Children Household Members Other:: 2 kids Housing: House Alcohol intake: never Patient Tobacco Use Status: Never used Tobacco e-Cigarette/Vaping Use: Never Used Second Hand Smoke Exposure: No service: No Current occupational status: unemployed Cognitive needs: No Hearing needs: No Vision needs: Yes Female Reproductive History Menstrual Age of Menarche: 14 Date of menopause: 05/22/21 Assessment & Plan Assessment & Plan (1) Pituitary microadenoma: Code(s): D35.2 - Benign neoplasm of pituitary gland Category: Medical Plan: 48-year-old female here today for initial evaluation of pituitary microadenoma. She has had this at least since 2013 diagnosed in [place], we have records of her scan from 2019 which showed that this used to be 2 mm in size, however most recently on MRI from 2023 is 3 mm. Mild increase, likely not significant. From 4593-0946 it was stable at 2 mm. Grossly her visual suárez are intact based on my exam at initial visit. However she is reporting some blurry vision that has been going on recently so I have asked her to see an supervisor sleeping bag department. Ophthalmology referral placed last visit, she said she did not hear from anyone so I have also given her the number to call today.. The natural history of pituitary micro adenoma as is that the usually remain stable in size with minimal s chances of growth. Endocrine society guidelines recommend that we do tests these for both hypo secretion and hyper secretion.labs done 06/24/2024 showed normal prolactin, thyroid function, LH, FSH and estradiol within postmenopausal range, normal IGF-1, normal baseline cortisol levels. 24 hour urine cortisol 06/27/2024 also within normal range. Given increase in size on last MRI, I will plan to repeat another MRI of the pituitary in 1 year, however after that of the microadenoma remained stable, no need for further testing. We will also repeat a prolactin level in 1 year in before her follow up. Plan: -ordered prolactin to be done in 1 year -referral for Ophthalmology placed , patient given number to call -ordered MRI of the pituitary to be done in 1 year -follow up in 1 year to discuss results (2) Blurry vision: Code(s): H53.8 - Other visual disturbances Category: Medical Plan: See above Plan See above Orders: Orders 2 Prolactin 1 Year D35.2 - Benign neoplasm of pituitary gland MRI Pituitary w/wo phuong 1 Year D35.2 - Benign neoplasm of pituitary gland Patient Instructions: See obgyn for evaluation of hormone replacement therapy Do MRI pituitary in 1 year and blood work in 1 year Someone will call you to schedule the MRI Follow up in 1 year see eye doctor Coding Level of Care Code Est Pt Level 3 (33065) Diagnoses Pituitary microadenoma D35.2 Blurry vision H53.8
--- OUTSIDE RECORDS SUMMARY | 2024-07-14 17:25 | XMS_ITS | Clinical Summary ---
Author Organization [facility] Address [address] [place] [address] Phone Care Team Providers Care Service Aide Name Role Phone Patricia Santos MD Primary Care Provider [phone] Social History Tobacco Use Types Packs/Day Years Used Date Smoking Tobacco: Never Assessed Sex and Gender Information Value Date Recorded Sex Assigned at Not on file Gender Identity Not on file Sexual Orientation Not on file Job Start Date Occupation Industry Not on file Not on file Not on file Plan of Treatment Upcoming Encounters Date Type Department Care Team ([facility] st Contact Info) Description 07/22/2024 10:00 AM EST Office Visit [facility] [address] [place] [address] [phone] Melisa Campbell MD [address] [place] [address] Health Maintenance Due Date Last Done Comments [...] age to complete this topic Care Teams Service Aide Relationship Specialty Start Date End Date Patricia Santos MD [address] [place] [address] , [address] [facility] D/B/A: [facility] FERNANDO Engel PCP - General Internal Medicine 06/09/24
== END 2024-07-14 13:54 | disposition home or self-care (01) ==
PROVIDERS: PCP Internal Medicine; Visit Provider Student in an Organized Health Care Education/Training Program
DX: D35.2 Benign neoplasm of pituitary gland (principal); H53.8 Other visual disturbances
CPT/HCPCS: 99213

== ENCOUNTER 2024-09-13 13:42 | Outpatient (AMB) | payer OTHER, SELFPAY ==
--- NOTE | 2024-09-13 13:54 | MHC.OFFVIS ---
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 Complaining of pelvic pain more on the left side associated with vaginal discharge no urinary or GI symptoms no fever or chills, no nausea or vomiting. Last Pap/HPV was negative in 07/08 Last Mammogram was BI-RADS 2 in 07/09 Last colonoscopy was in 01/02, the recommendation was to repeat in 5 years [facility] Medical History Cervical high risk HPV (human papillomavirus) test positive Pituitary adenoma Blurry vision Chronic GERD Dyslipidemia Chest pain Hx of migraine headaches Abdominal pain HTN (hypertension) Iron deficiency anemia Surgical History History of esophagogastroduodenoscopy (EGD) H/O colonoscopy History of endometrial ablation History of loop electrical excision procedure (LEEP) H/O left breast biopsy Family History Maternal Grandmother Tracheal cancer Colon cancer Mother Hypertension Arthritis Hypothyroidism Father Hypertension Pancreatic cancer Social History Household Members: Spouse and Children Household Members Other:: 2 kids Housing: House Alcohol intake: never Patient Tobacco Use Status: Never used Tobacco e-Cigarette/Vaping Use: Never Used Second Hand Smoke Exposure: No service: No Current occupational status: unemployed Cognitive needs: No Hearing needs: No Vision needs: Yes Female Reproductive History Menstrual Age of Menarche: 14 Date of menopause: 05/22/21 Total pregnancies: 2 Full term: 2 Number of Living Children: 2 Date of last pap smear: 06/24/23 (negative pap smear, negative hpv) Date of Mammogram: 07/04/24 (bi rad 2) Review of Systems Const All systems reviewed & are unremarkable except as noted in HPI and below Card Reports as per HPI Resp Reports as per HPI GI Reports as per HPI and Reports no additional complaints Reports as per HPI Physical Exam Vital Signs: Last Vital Signs BP 110/66 09/13/24 13:55 BMI result Body Mass Index 25.1 Const General: cooperative, healthy appearing and comfortable Chest Chest palpation & inspection: normal inspection of the chest and normal palpation of entire chest wall Breast/axilla inspection: normal inspection of the breasts and normal inspection of the axillae Breast/axilla palpation: normal palpation of the breasts, normal palpation of the axillae and no axillary lymphadenopathy Resp Effort & Inspection: normal respiratory effort Auscultation: clear to auscultation bilaterally Percussion: percussion normal Cardio Palpation: normal PMI Rate: regular rate Rhythm: regular rhythm Heart sounds: no murmurs and no rubs Peripheral pulses: Peripheral pulses 2+ throughout GI Inspection: Yes normal to inspection Palpation (GI): Soft to palpation, nontender, no guarding, not rigid and No hepatosplenomegaly present Percussion: Yes normal to percussion Auscultation: normal bowel sounds Rectal Exam - Female: deferred General: Yes bladder normal to palpation External Female Exam: No lesion Speculum Exam - Vagina: normal appearance of the vagina, normal palpation, normal vaginal discharge and not erythematous Speculum Exam - Cervix: normal appearance of the cervix and normal palpation Bimanual exam- vagina & uterus: normal bimanual exam, normal palpation, uterine size normal, bladder normal to palpation, consistency normal and normal palpation Bimanual Exam- Adnexa, other: normal adnexae, no masses and no tenderness Assessment & Plan Assessment & Plan (1) Well woman exam: Code(s): Z01.419 - Encounter for gynecological examination (general) (routine) without abnormal findings Category: Medical Plan: Cotesting not indicated this year. Instructions given the patient to schedule next screening Mammogram in 07/10. Counseled the patient about the recommended dietary allowance of 1000 mg of Calcium & 600 IU of vitamin D. The patient was instructed to perform monthly self-breast exams and to schedule an annual exam in a year; All questions answered and the patient verbalized understanding. Instructed the patient to schedule annual exam in a year (2) Pelvic pain: Comment: History of endometrial ablation 2018 Code(s): R10.2 - Pelvic and perineal pain Category: Medical Plan: Urine dip and test done in the office were both negative. GC and chlamydia with BV panel taken and pelvic ultrasound ordered. Discussed with the patient the differential diagnosis of pelvic pain including but not limited to adnexal, uterine masses, pelvic infections (PID), GI the (Irritable bowel syndrome, diverticulitis, others), musculoskeletal, myofascial pain abdominal wall , adhesions, endometriosis, psychological and others causes. Will check results and treat accordingly. All questions answered, the patient verbalized understanding. Instructed the patient to schedule an ultrasound and a follow-up appointment in 2 weeks. All questions answered, the patient verbalized understanding and agreed with the plan. Orders: Orders US pelvic and transvaginal Today R10.2 - Pelvic and perineal pain CT NG by PCR Today R10.2 - Pelvic and perineal pain Bacterial Vaginosis Panel Today R10.2 - Pelvic and perineal pain Coding Level of Care Code Est Pt Level 3 (92863) Est Pt Prev Care 40-64y(08329) Diagnoses Well woman exam Z01.419 Pelvic pain R10.2
[2024-09-13 13:55] VITALS: BP 110/66; BMI 25.1
== END 2024-09-13 14:36 | disposition home or self-care (01) ==
LOC: HO.HWS 13:42
PROVIDERS: PCP Internal Medicine; Visit Provider Obstetrics & Gynecology
DX: R10.2 Pelvic and perineal pain (principal); Z32.02 Encounter for pregnancy test, result negative; Z01.419 Encounter for gynecological examination (general) (routine) without abnormal findings
CPT/HCPCS: 99213; 99396; 99459

== ENCOUNTER 2024-09-13 13:42 | Outpatient (REF) | payer OTHER, SELFPAY ==
[2024-09-14 09:25] LABS: Bacterial Vaginosis PCR NEGATIVE (Negative); Candida Group PCR NOT DETECTED (Not Detect); Candida glab krusei PCR NOT DETECTED (Not Detect); Trichomonas vaginalis PCR NOT DETECTED (Not Detect)
[2024-09-14 10:42] LABS: CT PCR NOT DETECTED (Not Detect.); NG PCR NOT DETECTED (Not Detect.)
== END 2024-09-13 13:43 | disposition home or self-care (01) ==
LOC: HO.LNP 13:42
PROVIDERS: PCP Internal Medicine; Visit Provider Obstetrics & Gynecology
DX: R10.2 Pelvic and perineal pain (principal)
CPT/HCPCS: 81002; 81025; 81515; 87491; 87591

== ENCOUNTER 2024-10-07 14:04 | Outpatient (REF) | payer OTHER, SELFPAY | END 2024-10-07 14:05 | disposition home or self-care (01) | LOC: HO.US 14:04 | PROVIDERS: PCP Internal Medicine; Visit Provider Obstetrics & Gynecology | DX: R10.2 Pelvic and perineal pain (principal) | CPT/HCPCS: 76830; 76856 ==

== ENCOUNTER → 2024-10-07 14:06 | Outpatient (BNV) | payer OTHER, SELFPAY | PROVIDERS: PCP Internal Medicine; Visit Provider Radiology Diagnostic Radiology | DX: R10.2 Pelvic and perineal pain (principal) | CPT/HCPCS: 76830; 76856; 93975 ==

== ENCOUNTER 2024-11-28 13:12 | Outpatient (AMB) | payer OTHER, SELFPAY ==
--- NOTE | 2024-11-28 13:15 | A.OFFVIS_ITS ---
Vital Signs 11/28/24 13:16 Height 5 ft 4 in Weight 146 lb BMI 25.1 Intake Visit Reasons: US FOLLOW UP Drop Press Hand Required: Yes Drop Press Hand Language: Straddle Truck Operator Services: Drop Press Hand Present (in person) Drop Press Hand Name: Mariposa RITTER Information Interpreted: non-clinical & clinical Accompanied by: Self / Same As Patient Allergies Penicillins [PENICILLINS] Allergy (Intermediate, Verified 11/28/24 13:17) RASH,ITCHY HPI Comments Details: Presenting for follow-up regarding her pelvic pain. The patient is doing well. The following workup was done so far: GC/CT negative. Last visit urine test was negative. Last visit urine dip was negative. Pelvic ultrasound showed the following: Transabdominal scanning performed for overall anatomy. Transvaginal scanning performed for additional detail. Anteverted uterus is 9.3 cm length. 19 mm fibroid is present which previously measuring 26 mm. 7 mm fibroid is present which previously measured 7 mm. 5 mm region of calcification is present which previously measured 8 mm. Endometrium 5 mm thickness. Right ovary 2.2 x 1.4 x 1.1 cm. Left ovary 3.1 x 1.1 x 1.7 cm. Normal color Doppler with arterial/venous spectral tracing of both ovaries. No free fluid. IMPRESSION: 1. No acute process. 2. Decreased/stable uterine fibroids. [facility] Medical History Cervical high risk HPV (human papillomavirus) test positive Pituitary adenoma Blurry vision Chronic GERD Dyslipidemia Chest pain Hx of migraine headaches Abdominal pain HTN (hypertension) Iron deficiency anemia Surgical History History of esophagogastroduodenoscopy (EGD) H/O colonoscopy History of endometrial ablation History of loop electrical excision procedure (LEEP) H/O left breast biopsy Family History Maternal Grandmother Tracheal cancer Colon cancer Mother Hypertension Arthritis Hypothyroidism Father Hypertension Pancreatic cancer Social History Household Members: Spouse and Children Household Members Other:: 2 kids Housing: House Alcohol intake: never Patient Tobacco Use Status: Never used Tobacco e-Cigarette/Vaping Use: Never Used Second Hand Smoke Exposure: No service: No Current occupational status: unemployed Cognitive needs: No Hearing needs: No Vision needs: Yes Female Reproductive History Menstrual Age of Menarche: 14 Date of menopause: 05/22/21 Review of Systems Const All systems reviewed & are unremarkable except as noted in HPI and below Reports as per HPI and Reports no additional complaints GI Reports no additional complaints Reports no additional complaints Physical Exam Vital Signs: BMI result Body Mass Index 25.1 Assessment & Plan Assessment & Plan (1) Uterine myoma: Code(s): D25.9 - Leiomyoma of uterus, unspecified Category: Medical Plan: Discussed with the patient the findings on pelvic ultrasound & the risk of myosarcoma; in addition reviewed with the patient that malignancy and pre malignancy cannot be ruled out without hysterectomy for pathological evaluation ; furthermore, explained to the patient the limitation of pelvic ultrasound and endometrial biopsy in the setting. Discussed with the patient the options of treatment including expectant management versus hysterectomy; the pros and cons, risks benefits of each approach were discussed with the patient including the fact that in cases of myosarcoma, surgical treatment can lead to early diagnosis and positively affects the prognosis; after further discussion, the patient decided to proceed with expectant management. Will repeat pelvic ultrasound periodically. Instructions given to patient to call in case any of the following occurs: pressure symptoms, abnormal uterine bleeding, pelvic pain; and to schedule a twelve months pelvic ultrasound (order placed) and a follow-up appointment . All questions answered, the patient verbalized understanding and agreed with the plan . (2) Pelvic pain: Comment: History of endometrial ablation 2018 Code(s): R10.2 - Pelvic and perineal pain Category: Medical Plan: Discussed with the patient the results of the workup done including negative GC/chlamydia, urine dip and pelvic ultrasound. Differential diagnosis of transportation refrigeration technician causes that have not be ruled out yet include but not limited to endometriosis, pelvic adhesions , myomas , endometrial ablation or others. Recommended for the patient to see her PCP for further workup for non transportation refrigeration technician causes; if the all the results are negative and the patient's pelvic pain is persistent, instructions given to patient to call back for further testing. Meanwhile, instructions were given the patient to go to emergency room or call in case of fever above 100.4, heavy vaginal bleeding, persistence or worsening of her pelvic pain. All questions answered, the patient verbalized understanding. (3) Endometrial thickening on ultrasound: Comment: h/o endometrial ablation Code(s): R93.89 - Abnormal findings on diagnostic imaging of other specified body structures Category: Medical Plan: Discussed with the patient endometrial thickness above 4 mm in menopause , the differential diagnosis of a thickened endometrium includes but not limited to endometrial polyp, hyperplasia or carcinoma. Explained to the patient that endometrial each thickness is less predictive of endometrial neoplasia in asymptomatic patients, i.e. those without postmenopausal uterine bleeding. The sensitivity and specificity for detecting endometrial carcinoma at an endometrial thickness of >= 5mm was 83 and 72 percen t, respectively; this is lower than in patients with bleeding. Studies have shown that postmenopausal patients without uterine bleeding who had an endometrial thickness >11 mm had an endometrial carcinoma risk of 6.7 percent; this risk is similar to postmenopausal patients with bleeding and an endometrial thickness >5 mm. Recommended endometrial sampling to rule endometrial pathology via either office endometrial biopsy or diagnostic hysteroscopy/D&C with possible polypectomy/myomectomy. All pros and cons, risks and benefits of each approach were discussed with the patient, the patient decided to proceed with endometrial biopsy. Instructions given the patient to schedule an EMB appointment within 2 weeks. All questions answered, the patient verbalized Orders: Orders US pelvic and transvaginal 12 Months D25.9 - Leiomyoma of uterus, unspecified Coding Level of Care Code Est Pt Level 3 (50642) Diagnoses Uterine myoma D25.9 Pelvic pain R10.2 Endometrial thickening on ultrasound R93.89
[2024-11-28 13:16] VITALS: BMI 25.1
== END 2024-11-28 13:40 | disposition home or self-care (01) ==
LOC: HO.HWS 13:13
PROVIDERS: PCP Internal Medicine; Visit Provider Obstetrics & Gynecology
DX: D25.9 Leiomyoma of uterus, unspecified (principal); R10.2 Pelvic and perineal pain; R93.89 Abnormal findings on diagnostic imaging of other specified body structures
CPT/HCPCS: 99213

== ENCOUNTER → 2024-11-28 13:12 | Outpatient (BNVA) | payer OTHER, SELFPAY | PROVIDERS: PCP Internal Medicine; Visit Provider Obstetrics & Gynecology | DX: R10.2 Pelvic and perineal pain (principal); D25.9 Leiomyoma of uterus, unspecified; R93.89 Abnormal findings on diagnostic imaging of other specified body structures | CPT/HCPCS: 99212 ==

== ENCOUNTER 2024-12-13 13:09 | Outpatient (AMB) | payer OTHER, SELFPAY ==
--- NOTE | 2024-12-13 13:17 | MHC.OFFVIS ---
Vital Signs 12/13/24 13:26 Height 5 ft 4 in Weight 146 lb BMI 25.1 Intake Visit Reasons: EMB Continuing Education Director Required: Yes Continuing Education Director Language: Director Sales And Trade Marketing Services: Continuing Education Director Present (in person) Continuing Education Director Name: Mariposa RITTER Information Interpreted: non-clinical & clinical Grommet Man: Grommet Man Present (Mariposa RITTER) Accompanied by: Self / Same As Patient Allergies Penicillins (PENICILLINS) Allergy (Intermediate, Verified 12/13/24 13:27) RASH,ITCHY Post menopausal: Yes HPI Comments Details: Presenting for EMB [facility] Medical History Cervical high risk HPV (human papillomavirus) test positive Pituitary adenoma Blurry vision Chronic GERD Dyslipidemia Chest pain Hx of migraine headaches Abdominal pain HTN (hypertension) Iron deficiency anemia Surgical History History of esophagogastroduodenoscopy (EGD) H/O colonoscopy History of endometrial ablation History of loop electrical excision procedure (LEEP) H/O left breast biopsy Family History Maternal Grandmother Tracheal cancer Colon cancer Mother Hypertension Arthritis Hypothyroidism Father Hypertension Pancreatic cancer Social History Household Members: Spouse and Children Household Members Other:: 2 kids Housing: House Alcohol intake: never Patient Tobacco Use Status: Never used Tobacco e-Cigarette/Vaping Use: Never Used Second Hand Smoke Exposure: No service: No Current occupational status: unemployed Cognitive needs: No Hearing needs: No Vision needs: Yes Female Reproductive History Menstrual Age of Menarche: 14 Date of menopause: 05/22/21 Review of Systems Const All systems reviewed & are unremarkable except as noted in HPI and below Reports as per HPI and Reports no additional complaints GI Reports no additional complaints Reports no additional complaints Physical Exam Vital Signs: BMI result Body Mass Index 25.1 Office Procedures Endometrial Biopsy Details: The patient was counseled regarding the indication and benefits of endometrial sampling to rule out endometrial pathology including not limited to endometrial hyperplasia or endometrial cancer and others; The alternatives (Either do nothing vs. hysteroscopy D&C) & the risks were discussed with the patient including but not limited: pain, uterine perforation, bleeding, infection, possible injury to bladder, bowel, ureter, possible need for blood transfusion with all its possible risks. The patient verbalized understanding all questions answered and signed consent. The patient was placed into the dorsal lithotomy position; a speculum was inserted in the vagina. Using aseptic technique for the procedure, the cervix was cleansed with Betadine. The anterior lip of the cervix was grasped with a single tooth tenaculum. The uterus was sounded to 7 cm with a 4 mm Pipelle was used. Tissues samples were obtained and placed in formalin, in a patient labeled container and sent to the pathology department. At the end of the procedure, there was minimal bleeding noted The patient tolerated the procedure well and was discharged in good condition with the following instructions: Nothing in the vagina until the bleeding stops. No sex until the bleeding stops, to call if any of the following occurs: fever (>100.4), flu-like symptoms, abdominal pain, heavy bleeding, four smelling vaginal discharge. The patient was instructed to schedule a Follow up appointment in 2 weeks to discuss pathology results of the biopsy and treatment options. This note was generated with a voice recognition program. Some errors may have been overlooked during the review of this note. Sometimes these errors may affect the content or meaning of a given sentence. [id number] Biopsy Assessment & Plan Assessment & Plan (1) Endometrial thickening on ultrasound: Comment: h/o endometrial ablation Code(s): R93.89 - Abnormal findings on diagnostic imaging of other specified body structures Category: Medical Plan: EMB done, see procedure note Orders: Orders AMB Endometrial Biopsy Today R93.89 - Abnormal findings on diagnostic imaging of other specified body structures Surgical Today N93.9 - Abnormal uterine and vaginal bleeding, unspecified, R93.89 - Abnormal findings on diagnostic imaging of other specified body structures Coding Level of Care Code Procedure Only Diagnoses Endometrial thickening on ultrasound R93.89 CPT Codes Endometrial Biopsy - CPT: 22620-Gosnyevftju Biopsy ([id number])
[2024-12-13 13:26] VITALS: BMI 25.1
== END 2024-12-13 13:42 | disposition home or self-care (01) ==
LOC: HO.HWS 13:09
PROVIDERS: PCP Internal Medicine; Visit Provider Obstetrics & Gynecology
DX: R93.89 Abnormal findings on diagnostic imaging of other specified body structures (principal)
CPT/HCPCS: 58100

== ENCOUNTER 2024-12-13 13:09 | Outpatient (REF) | payer OTHER, SELFPAY | END 2024-12-13 13:10 | disposition home or self-care (01) | LOC: HO.LNP 13:09 | PROVIDERS: PCP Internal Medicine; Visit Provider Obstetrics & Gynecology | DX: N93.9 Abnormal uterine and vaginal bleeding, unspecified (principal); R93.89 Abnormal findings on diagnostic imaging of other specified body structures | CPT/HCPCS: 58100; 88305 ==

== ENCOUNTER 2024-12-27 09:40 | Outpatient (AMB) | payer OTHER, SELFPAY ==
--- NOTE | 2024-12-27 09:40 | MHC.OFFVIS ---
Intake Visit Reasons: emb results Systems Software Designer Required: Yes Systems Software Designer Language: National Account Director Services: Systems Software Designer Present (in person) Systems Software Designer Name: Mariposa RITTER Information Interpreted: non-clinical & clinical Allergies Penicillins (PENICILLINS) Allergy (Intermediate, Verified 12/27/24 09:41) RASH,ITCHY HPI Comments Details: The patient is presenting after endometrial biopsy. The patient has no complaints, no vaginal bleeding, no feverishness chills or abdominal pain. The endometrial biopsy pathology report showed the following: Endometrium, biopsy: Scant strips of benign atrophic endometrium and benign endocervical glandular epithelium with abundant mucus; no atypia or carcinoma PFSH Medical History Cervical high risk HPV (human papillomavirus) test positive Pituitary adenoma Blurry vision Chronic GERD Dyslipidemia Chest pain Hx of migraine headaches Abdominal pain HTN (hypertension) Iron deficiency anemia Surgical History History of esophagogastroduodenoscopy (EGD) H/O colonoscopy History of endometrial ablation History of loop electrical excision procedure (LEEP) H/O left breast biopsy Family History Maternal Grandmother Tracheal cancer Colon cancer Mother Hypertension Arthritis Hypothyroidism Father Hypertension Pancreatic cancer Social History Household Members: Spouse and Children Household Members Other:: 2 kids Housing: House Alcohol intake: never Patient Tobacco Use Status: Never used Tobacco e-Cigarette/Vaping Use: Never Used Second Hand Smoke Exposure: No service: No Current occupational status: unemployed Cognitive needs: No Hearing needs: No Vision needs: Yes Female Reproductive History Menstrual Age of Menarche: 14 Date of menopause: 05/22/21 Review of Systems Const All systems reviewed & are unremarkable except as noted in HPI and below Reports as per HPI and Reports no additional complaints GI Reports no additional complaints Reports no additional complaints Telehealth Telehealth Telehealth Platform: Telephone Location of provider rendering services: practice address Location of patient: address on file Patient Identification confirmed using: Name, : Yes Telehealth method: video Patient verbally consented to treatment: Yes Patient verbally consented to billing insurance company: Yes Patient informed of any privacy concerns related to visit: Yes Minutes spent on Phone/Video with Pt.: 5 Assessment & Plan Assessment & Plan (1) Endometrial thickening on ultrasound: Comment: h/o endometrial ablation Code(s): R93.89 - Abnormal findings on diagnostic imaging of other specified body structures Category: Medical Plan: Discussed with the patient the results of the endometrial biopsy. Discussed with the patient the sensitivity, specificity, positive and negative predictive value, of endometrial biopsy in detecting endometrial pathology including but not limited to endometrial hyperplasia, cancer and other pathology; instructed the patient to call in case vaginal bleeding recurs, the next step will be to proceed with a diagnostic hysteroscopy/D&C for further endometrial sampling evaluation to rule out endometrial pathology. All questions answered and the patient verbalized understanding and agreed with the plan. I spent a total of 20 minutes reviewing the chart, talking to the patient via video and documenting in the medical record. Coding Level of Care Code Tele Est Pt Level 3 (70391) Diagnoses Endometrial thickening on ultrasound R93.89
== END 2024-12-27 10:08 | disposition home or self-care (01) ==
LOC: HO.HWS 09:40
PROVIDERS: PCP Internal Medicine; Visit Provider Obstetrics & Gynecology
DX: R93.89 Abnormal findings on diagnostic imaging of other specified body structures (principal)
CPT/HCPCS: 99213

== ENCOUNTER 2025-01-19 11:01 | Outpatient (AMB) | payer OTHER, SELFPAY ==
--- NOTE | 2025-01-19 11:03 | A.OFFVIS_ITS ---
Vital Signs 01/19/25 11:16 Height 5 ft 4 in Weight 153 lb 0.013 oz BMI 26.3 BP 124/82 Blood Pressure Location Lt brachial Position Sitting Pulse 68 Pulse Source Pulse Oximeter Pulse Oximetry (%) 97 Oxygen Delivery Method Room Air Intake Visit Reasons: joint pain/New Patient Intake Note: Patient presents for joint pain. Patient c/o of pain on neck, both shoulders, both arms, both wrist, both hands, both hips, both knees and bottom of both feet. Patient stated she has experience these symptoms for 2 years. Patient takes Motrin but it doesn't work. 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 female with hypertension, HLD, GERD, hx of pituitary microadenoma, and fibromyalgia here today for follow up Interval History: Patient last seen 10/08/[address] Diego - New patient visit for evaluation of polyarthralgias - diagnosed with fibromyalgia and started on duloxetine Since then was lost to follow up Today - Tried duloxetine but noted it caused high blood pressure after 1-2 days and self discontinued - She has been using manteca de ubra (menthol and salicylate) as well as ibuprofen - Complains of pain in her shoulders extending to her arms, feels that she cannot hold things in her hand - Pain in her legs, outer hips, knees extending to her ankles and in the bottom of her feet - lower back pain also - numbess and tingling of the bilateral hands Rheumatologic History: fibromyalgia - duloxetine. caused elevated blood pressure Current Rheumatology Medication(s): [facility] Medical History Cervical high risk HPV (human papillomavirus) test positive Pituitary adenoma Blurry vision Chronic GERD Dyslipidemia Chest pain Hx of migraine headaches Abdominal pain HTN (hypertension) Iron deficiency anemia Surgical History History of esophagogastroduodenoscopy (EGD) H/O colonoscopy History of endometrial ablation History of loop electrical excision procedure (LEEP) H/O left breast biopsy Family History Maternal Grandmother Tracheal cancer Colon cancer Mother Hypertension Arthritis Hypothyroidism Orthopnea Father Hypertension Pancreatic cancer Social History Household Members: Spouse and Children Household Members Other:: 2 kids Housing: House Alcohol intake: never Patient Tobacco Use Status: Never used Tobacco e-Cigarette/Vaping Use: Never Used Second Hand Smoke Exposure: No service: No Current occupational status: unemployed Cognitive needs: No Hearing needs: No Vision needs: Yes Female Reproductive History Menstrual Age of Menarche: 14 Date of menopause: 05/22/21 Review of Systems Const Details: Review of Systems Constitutional: Denies fever, chills, weight loss ENT: Denies vision changes, eye pain or eye redness, dental caries, dry mouth GI: Denies nausea, vomiting, diarrhea, abdominal pain, change in BM Pulm: Denies SOB, BURROWS, hemoptysis, wheezing Cards: Denies chest pain, palpitations Skin: Denies Raynaud's, rash, nail changes, photosensitivity, PROPERTY COORDINATOR: Denies headaches, weakness, paresthesias, recurrent falls MSK: as per HPI All other systems reviewed and are unremarkable except noted above Physical Exam Exam Exam: Vital signs reviewed Physical Examination CONSTITUITIONAL Patient alert and cooperative. Well appearing and in no apparent painful distress MSK Hands * Right Hand: Able to make a fist. No swelling or tenderness to palpation of these joints. No deformities noted. * Left Hand: Able to make a fist. No swelling or tenderness to palpation of these joints. No deformities noted. * Herbedens nodes noted to bilateral 5th PIPs and 2nd PIPs Wrists * Right Wrist: Full ROM. 70 degrees of wrist flexion, 80 degrees of wrist extension. No swelling or TTP * Left Wrist: Full ROM. 70 degrees of wrist flexion, 80 degrees of wrist extension. No swelling or TTP Elbows * Right Elbow: Full ROM. No swelling or TTP. No TTP of the medial epicondyle. TTP of the lateral epicondyle * Left Elbow: Full ROM. No swelling or TTP. No TTP of the medial and lateral epicondyles Shoulders * Right shoulder: Full ROM. No swelling noted. No TTP of the AC joint, subacromial bursa or posterior shoulder * Left shoulder: Full ROM. No swelling noted. No TTP of the AC joint, subacromial bursa or posterior shoulder Hips * Right hip: Good ROM. No pain elicited with hip flexion/internal rotation/external rotation * Left hip: Good ROM. No pain elicited with hip flexion/internal rotation/external rotation Hip bursa: Tenderness to palpation bilaterally. L>R Knees * Right knee: Full ROM. No swelling noted. No TTP of the knee joint lie or pes anserine bursa * Left knee: Full ROM. No swelling noted. No TTP of the knee joint lie or pes anserine bursa. Ankles * Right ankle: Good ankle dorsiflexion and plantar flexion. No swelling. No TTP of the ankle joint * Left ankle: Good ankle dorsiflexion and plantar flexion. No swelling. No TTP of the ankle joint Feet * Right foot: Negative squeeze test * Left foot: Negative squeeze test Tender points? * Tenderness to palpation of the bilateral trapezius, supraspinatus, anterior costochondral junctions, bilateral suboccipital muscle insertions SKIN No rashes Vital Signs: Last Vital Signs Pulse 68 01/19/25 11:16 BP 124/82 01/19/25 11:16 Pulse Ox 97 01/19/25 11:16 Oxygen Delivery Method Room Air 01/19/25 11:16 BMI result Body Mass Index 26.3 Results Reviewed Results Reviewed: Laboratory Tests 05/04/24 06/24/24 13:20 09:18 WBC 11.6 H RBC 4.86 Hgb 13.9 Hct 42.3 Plt Count 325 Sodium 141 Potassium 3.6 Chloride 104 Carbon Dioxide 31 H BUN 10 Creatinine 0.88 AST 25 ALT 31 Alkaline Phosphatase 101 XR Bilateral Knees 07/2022 FINDINGS: Bones and soft tissues are normal. No fracture or joint effusion. Alignment is anatomic. The bilateral lateral and medial joint space compartments are well maintained. The right patellofemoral compartment is well-maintained. No abnormal soft tissue calcification. IMPRESSION: Normal right knee radiographs and AP view of the bilateral knees. Assessment & Plan Assessment & Plan (1) Fibromyalgia: Code(s): M79.7 - Fibromyalgia Category: Medical Plan: #Fibromyalgia Patient is a 49-year-old female with fibromyalgia here today for follow up. Had a discussion with the patient about her diagnosis of fibromyalgia. No evidence of synovitis on examination. Did not tolerate duloxetine last year and so we will do a trial of gabapentin. Discussed that we would try 100 mg at night initially and this can be increased to 300 mg as tolerated. Plan - Gabapentin 100mg-300mg nightly - RTC 3 months (2) Osteoarthritis of hands, bilateral: Code(s): M19.041 - Primary osteoarthritis, right hand; M19.042 - Primary osteoarthritis, left hand Qualifiers: Osteoarthritis type: primary Qualified Code(s): M19.041 - Primary osteoarthritis, right hand; M19.042 - Primary osteoarthritis, left hand Plan: #OA hands Patient also has early osteoarthritic changes to her hands. I discussed with the patient that this is likely genetic and she agreed that her mom and her us have similar hand features. Recommended topical diclofenac 4 times a day We will also send patient for bilateral upper extremity evaluation for carpal tunnel. Plan I spent 30 minutes reviewing the record and labs, taking a history, examining the patient, discussing the treatment plan, ordering diagnostic work up and documenting in the medical record Orders: Orders NE electromyogram (EMG) Today G56.03 - Carpal tunnel syndrome, bilateral upper limbs NE nerve conduction velocity Today G56.03 - Carpal tunnel syndrome, bilateral upper limbs Medications: New gabapentin 100 - 300 mg (1 - 3 x 100 mg) PO BEDTIME 90 caps 5RF 30 days M79.7 - Fibromyalgia diclofenac sodium 1% apply to bilateral hands 4 times a day 4 grams topical QID 100 grams 5RF M19.041 - Primary osteoarthritis, right hand, M19.042 - Primary osteoarthritis, left hand Coding Level of Care Code Est Pt Level 4 (66945) Complex EM visit Add On G2211 Diagnoses Fibromyalgia M79.7 Primary osteoarthritis of both hands M19.041; M19.042 Osteoarthritis type: primary
[2025-01-19 11:16] VITALS: BP 124/82; PULSE 68; O2SAT 97; BMI 26.3
== END 2025-01-19 12:01 | disposition home or self-care (01) ==
LOC: HO.RHES 11:02
PROVIDERS: PCP Internal Medicine; Visit Provider Student in an Organized Health Care Education/Training Program
DX: M79.7 Fibromyalgia (principal); M19.041 Primary osteoarthritis, right hand; M19.042 Primary osteoarthritis, left hand
CPT/HCPCS: 99214

== ENCOUNTER → 2025-01-19 11:01 | Outpatient (BNVA) | payer OTHER, SELFPAY | PROVIDERS: PCP Internal Medicine; Visit Provider Student in an Organized Health Care Education/Training Program | DX: M79.7 Fibromyalgia (principal); M19.041 Primary osteoarthritis, right hand; M19.042 Primary osteoarthritis, left hand | CPT/HCPCS: 99212 ==

== ENCOUNTER 2025-03-01 10:58 | Outpatient (REF) | payer OTHER, SELFPAY ==
--- NOTE | 2025-03-01 11:00 | EMG_ITS ---
Chief complaint: Bilateral hand numbness, history of fibromyalgia and osteoarthritis Reason for referral: Evaluate for Carpal Tunnel Syndrome Referred by: Dr. Kern Procedure done: Bilateral upper extremities NCS/EMG Precautions and/or limitations: None American speaking, seen with medical interpreter. The limb temperature was monitored continuously and remained between 32-36 degrees C during the performance of the NCS. Nerve Conduction Studies Anti Sensory Summary Table ?Stim Site NR Onset (ms) Norm Onset (ms) Peak (ms) Norm Peak (ms) O-P Amp (?V) Norm O-P Amp Site1 Site2 Delta-0 (ms) Dist (cm) Ramesh (m/s) Norm Ramesh (m/s) Left Median Anti Sensory (2nd Digit) Wrist ? 2.6 3.2 <3.6 33.6 >10 Wrist 2nd Digit 2.6 14.0 54 Right Median Anti Sensory (2nd Digit) Wrist ? 2.5 3.1 <3.6 44.7 >10 Wrist 2nd Digit 2.5 14.0 56 Right Radial Anti Sensory (Thumb) Forearm ? 1.6 2.1 <3.1 40.5 Forearm Thumb 1.6 0.0 Left Ulnar Anti Sensory (5th Digit) Wrist ? 2.2 2.9 <3.7 44.5 >15.0 Wrist 5th Digit 2.2 14.0 64 Right Ulnar Anti Sensory (5th Digit) Wrist ? 2.2 3.0 <3.7 36.4 >15.0 Wrist 5th Digit 2.2 14.0 64 Motor Summary Table ?Stim Site NR Onset (ms) Norm Onset (ms) O-P Amp (mV) Norm O-P Amp iAmp (mV) Amp (1st) (%) Site1 Site2 Delta-0 (ms) Dist (cm) Ramesh (m/s) Norm Ramesh (m/s) Left Median Motor (Abd Poll Brev) Wrist ? 3.7 <3.9 13.9 >4.5 15.6 100.0 Elbow Wrist 2.9 19.5 67 >45 Elbow ? 6.6 13.4 15.0 96.4 Right Median Motor (Abd Poll Brev) Wrist ? 3.8 <3.9 5.6 >4.5 6.7 100.0 Elbow Wrist 3.5 20.0 57 >45 Elbow ? 7.3 5.6 6.7 100.0 Left Ulnar Motor (Abd Dig Minimi) Wrist ? 2.8 <3.0 5.9 >5 7.0 100.0 B Elbow Wrist 2.7 16.0 59 >45 B Elbow ? 5.5 5.8 7.0 98.3 A Elbow B Elbow 1.5 10.0 67 >45 A Elbow ? 7.0 5.8 6.9 98.3 Right Ulnar Motor (Abd Dig Minimi) Wrist ? 2.9 <3.0 7.1 >5 8.1 100.0 B Elbow Wrist 3.0 17.0 57 >45 B Elbow ? 5.9 7.1 8.1 100.0 A Elbow B Elbow 1.1 10.0 91 >45 A Elbow ? 7.0 6.7 7.8 94.4 EMG ?Side Muscle Nerve Root Ins Act Fibs Psw Amp Dur Poly Recrt Int Pat Comment Right 1stDorInt Ulnar C8-T1 Nml Nml Nml Nml Nml 0 Nml Complete Right FlexCarRad Median C6-7 Nml Nml Nml Nml Nml 0 Nml Complete Right Biceps Musculocut C5-6 Nml Nml Nml Nml Nml 0 Nml Complete Right Triceps Radial C6-7-8 Nml Nml Nml Nml Nml 0 Nml Complete Right Deltoid Axillary C5-6 Nml Nml Nml Nml Nml 0 Nml Complete Left 1stDorInt Ulnar C8-T1 Nml Nml Nml Nml Nml 0 Nml Complete Left FlexCarRad Median C6-7 Nml Nml Nml Nml Nml 0 Nml Complete Left Biceps Musculocut C5-6 Nml Nml Nml Nml Nml 0 Nml Complete Left Triceps Radial C6-7-8 Nml Nml Nml Nml Nml 0 Nml Complete Left Deltoid Axillary C5-6 Nml Nml Nml Nml Nml 0 Nml Complete FINDINGS: All motor and sensory nerves tested showed normal latencies, amplitudes and conduction velocities. Concentric needle EMG was performed in selected muscles of the bilateral upper extremities. Study did not reveal signs of electric abnormalities as shown in the table above. IMPRESSION: 1. This is a normal study. 2. There is no electrodiagnostic evidence for median neuropathy, ulnar neuropathy, brachial plexopathy, or cervical radiculopathy. Thank you for your kind referral. Jesusita Henley MD, JOSH Board Certified, [place] [employer] and [employer] (ABPMR) Board Certified, [place] Board [employer] Electrodiagnostic [employer] (ABEM) CODIN [id number] x [address] [facility]
== END 2025-03-01 10:59 | disposition home or self-care (01) ==
LOC: HO.NEURO 10:58
PROVIDERS: PCP Internal Medicine; Visit Provider Student in an Organized Health Care Education/Training Program
DX: G56.03 Carpal tunnel syndrome, bilateral upper limbs (principal)
CPT/HCPCS: 95886; 95911

== ENCOUNTER → 2025-03-01 11:00 | Outpatient (BNV) | payer OTHER, SELFPAY | PROVIDERS: PCP Internal Medicine; Visit Provider Physical Medicine & Rehabilitation | DX: R20.0 Anesthesia of skin (principal); R20.2 Paresthesia of skin | CPT/HCPCS: 95886; 95909 ==